=== PATIENT | female | born 2000 | race Caucasian/White ===

== ENCOUNTER 2023-11-13 10:41 | Outpatient (CLI) | payer OTHER, SELFPAY ==
[2023-11-13 11:31] LABS: Basophils # 0.1 K/mm3 (0-0.2); Basophils % 0.7 % (0.1-2.0); Eosinophils # 0.1 K/mm3 (0.0-0.4); Eosinophils % 1.2 % (0.1-12.0); Hematocrit 33.7 % (37.0-47.0); Hemoglobin 11.5 g/dL (12.2-16.2); Lymphocytes # 2.2 K/mm3 (0.7-4.5); Lymphocytes % 26.7 % (10-50); Mean Corpuscular HGB Conc 34.2 g/dL (31.8-35.4); Mean Corpuscular Hemoglobin 29.9 pg (27.0-31.2); Mean Corpuscular Volume 87.4 fl (81-99); Mean Platelet Volume 7.7 fl (7.4-10.4); Monocytes # 0.4 K/mm3 (0.1-1.0); Monocytes % 4.5 % (1.7-9.3); Neutrophils # 5.5 K/mm3 (1.8-7.8); Platelet Count 392 K/mm3 (142-424); Red Blood Count 3.85 M/mm3 (4.20-5.40); Red Cell Distribution Width 13.5 % (11.5-17.5); White Blood Count 8.1 K/mm3 (4.8-10.8)
[2023-11-13 13:29] LABS: HCG,Quantitative 124170 mIU/ml (0-5.42)
[2023-11-14 08:32] LABS: HIV Screen 4th Generation wRfx Non Reactive (Non Reactive)
[2023-11-14 09:14] LABS: Rubella Antibodies, IgG 2.15 index (Immune >0.99)
[2023-11-14 11:05] LABS: Rapid Plasma Reagin Ab Titer Non Reactive titer (NonRea<1:1)
[2023-11-14 15:02] LABS: Progesterone 30.8 ng/mL (.)
[2023-11-21 09:26] LABS: Hepatitis B Surface Antigen Negative; Hepatitis C Antibody Non Reactive
== END 2023-11-13 23:59 ==
PROVIDERS: PCP Pediatrics; Visit Provider Obstetrics & Gynecology
DX: N92.6 Irregular menstruation, unspecified (principal); Z34.91 Encounter for supervision of normal pregnancy, unspecified, first trimester; Z3A.09 9 weeks gestation of pregnancy
CPT/HCPCS: 36415; 84144; 84702; 85025; 86593; 86703; 86762; 86850; 87086; 87340; 87380; G0432

== ENCOUNTER 2024-01-28 13:12 | Outpatient (CLI) | payer BC, SELFPAY ==
--- NOTE | 2024-01-28 13:13 | US_ITS ---
PROCEDURE: US OB /MATERNAL DETAIL CLINICAL INDICATION: 20 wk+ Anatomy Scan-US OB Complete COMPARISON: No exams were available for comparison FINDINGS: Transabdominal sonographic images of the pelvis were obtained. From her established due date she is 20 weeks 2 days. Single viable intrauterine gestation. Breech position then switched to cephalic.. Placenta: Posteriorplacenta grade 1. Transvaginal ultrasound reveals that the placenta is marginal, currently 0.8 cm from the internal cervical os. There is an average amount of fluid. The cervix appears satisfactory. Closed and measuring 3.0 cm in length. Complete survey performed and was unremarkable on the submitted images as in PACS. No discrete anomalies identified on survey imaging by technologist. Active fetus. Three-vessel cord with satisfactory umbilical cord insertion. 4- chamber heart noted. Situs, aortic arch, LVOT, RVOT, three-vessel view appear normal. Survey of brain & ventricles Unremarkable. Cerebellum, thalamus, choroid plexus, cisterna magna appear normal. Face and neck survey unremarkable. Profile, nasion, lips and nose appeared normal. Diaphragm and chest views unremarkable. Abdomen: Both kidneys noted and unremarkable. Stomach and bladder noted and satisfactory. Spine: Survey of the spine satisfactory with no anomalies identified nor imaged. Cervical, thoracic, lower spine appear normal. Both arms and legs noted. Amniotic Fluid: Adequate. Measurements: Average ultrasound age 19weeks 4days. Estimated due date by ultrasound age 0806/19/2024. Estimated weight 314g BPD = 19 weeks 0 days HC = 19weeks 2days AC = 20weeks 3days FL = 19weeks 3days Growth Percentile= 21 Heart Rate = 160bpm Cerebellum = 19weeks 6days Humerus = 20weeks 1day HC/AC is 1.1 FL/BPD is 0.71 FL/AC is 0.2 IMPRESSION: 1. Viable fetus initially in the breech presentation then switched to cephalic presentation. 2. The placenta is posterior grade 1 and marginal previa. It is 0.8 cm from the internal cervical os. Suggest repeat ultrasound at 28 weeks to see resolution of the marginal placenta. 3. The fluid is within normal limits. 4. Anatomical scan appears normal. 5. biometry is consistent with dates. Dictated by: Kehinde Winter MD 01/28/2024 16:22 Kehinde Winter MD in [place] 01/28/2024 16:22
== END 2024-01-28 23:59 ==
LOC: RAD 13:13
PROVIDERS: PCP Pediatrics; Visit Provider Obstetrics & Gynecology
DX: O99.322 Drug use complicating pregnancy, second trimester (principal); O26.892 Other specified pregnancy related conditions, second trimester; Z3A.20 20 weeks gestation of pregnancy; F12.90 Cannabis use, unspecified, uncomplicated; Z98.891 History of uterine scar from previous surgery; Z14.1 Cystic fibrosis carrier; Z36.3 Encounter for antenatal screening for malformations
CPT/HCPCS: 76811

== ENCOUNTER 2024-02-14 18:35 | Emergency (ER) | payer BC, SELFPAY ==
[2024-02-14 18:37] VITALS: BP 121/80; PULSE 105; RESP 19; TEMP 36.7; O2SAT 98; BMI 22.7
--- NOTE | 2024-02-14 18:43 | ECG_ITS ---
APPROVED REPORT Exam: Resting ECG HR:89 bpm ECG Measurements Heart Rate 89 AXES AL 126 P 74 QRSd 92 QRS 91 QT 354 T 74 QTc 401 Conclusion SINUS RHYTHM WITH MARKED SINUS ARRHYTHMIA BORDERLINE RIGHT AXIS DEVIATION [QRS AXIS > 90] No STEMI -Caroline Whyte MD Electronically signed by : CAROLINE WHYTE, 02/14/2024 23:38:24
--- NOTE | 2024-02-14 18:48 | PC.NURSE ---
FHT'S 145-150 PER DOPPLER
[2024-02-14 18:54] VITALS: BP 111/72; PULSE 120; RESP 18; TEMP 36.8; O2SAT 96
--- NOTE | 2024-02-14 18:58 | ED_ITS ---
Discharge Plan Disposition Patient Disposition: Home, Self-Care Condition: Good Prescriptions Prescriptions: No Action Classic 28 mg iron- 800 mcg tablet See Rx Instructions .ROUTE .COMPLEX Rx Instructions: Daily promethazine 12.5 mg tablet 12.5 mg PO Q6H PRN (Reason: nausea and vomiting) Qty: 20 1RF Referrals Follow up/Referrals: Nathaniel Glass [Primary Care Provider] - See instructions Nestor Caldwell MD [Staff Physician] - See instructions Activity Restrictions/Add. Instructions Additional Instructions/Restrictions: Please follow-up in Dr. Caldwell's office at 10 AM tomorrow. Please follow-up with [facility]ERK, PCP or return to ER for any worsening change in your symptoms Clinical Impressions Clinical Impression: Dyspnea Discharge ED Provider: Caroline Whyte HPI <SHEYRL Velasco - Last Filed: 02/14/24 21:01> General Chief Complaint: Shortness of Breath/Dyspnea Stated Complaint: SOA- 22 wks Time Seen by Provider: 02/14/24 18:38 Mode of Arrival: Ambulatory Source of Information: Patient Limitations: No Limitations Description of Symptoms (Recalled from ER Triage Doc. by RN): pt presents to ED with c/o shortness of air this am. cough, cant take a deep breath, no pain, no edema. History of Present Illness HPI narrative: Patient presents for evaluation of acute onset of dyspnea that began approximately 1 to 2 AM in the morning. There was no provoking event. Patient denies exposure or feeling any type of illness including fever chills hemoptysis hematochezia melena nausea vomiting diarrhea. Patient states that the shortness of breath is worse when lying flat but still present when sitting up or upright. This is her second and thus far has been uncomplicated. Related Data Home Medications Medication Instructions Recorded Confirmed vits [id number] fum See Rx Instructions .Route .COMPLEX 11/13/23 01/28/24 28 mg iron-folic acid 800 mcg tablet (Classic ) Previous Rx's Medication Instructions Recorded promethazine 12.5 mg tablet 12.5 mg PO Q6H PRN nausea and 12/24/23 vomiting #20 tabs Allergies Allergy/AdvReac Type Severity Reaction Status Date / Time bee pollen Allergy Severe Anaphylaxis Verified 01/28/24 14:17 PFSH <SHERYL Velasco - Last Filed: 02/14/24 21:01> [facility] Disclaimer: The information contained in this section may have been updated after the patient was seen, as this information can be updated by other users. 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; negative for Fragile X, SMA and DMD Marijuana use during delivery delivered Surgical History History of Family History Other Diabetes Heart attack Hyperlipidemia Stroke Thyroid disorder Social History Smoking Status: Never smoker alcohol intake: never substance use type: denies use current occupational status: employed Travel in the last 8 weeks: None <SHERYL Velasco - Last Filed: 02/14/24 21:01> ROS Obtained: Yes Systems reviewed as appropriate & no additional complaints except as documented Physical Exam <SHERYL Velasco - Last Filed: 02/14/24 21:01> General General appearance: alert and in no apparent distress Head Head exam: atraumatic and normal inspection Eye Eye exam: Present normal appearance and EOMI ENT ENT exam: Present normal exam and normal oropharynx Neck Neck exam: Present normal inspection and full ROM Chest Chest inspection: Present normal inspection and symmetric chest wall rise Respiratory Respiratory exam: Present normal lung sounds bilaterally; Absent respiratory distress, wheezes, stridor or accessory muscle use Cardiovascular Cardiovascular exam: Present normal rhythm, tachycardia (At 105), normal heart sounds, +S1 and +S2 Abdominal Exam Abdominal exam: Present soft and normal bowel sounds; Absent tenderness Comment: heart tones dopplered at 145-150 Extremities Exam Extremities exam: Present normal inspection and full ROM Back Exam Back exam: Present normal inspection and full ROM Neurological Exam Neurological exam: Present alert and oriented X3 Psychiatric Psychiatric exam: Present normal affect and normal mood Skin Skin exam: Present warm, dry and normal color HEART Score <SHERYL Velasco Last Filed: 02/14/24 21:01> HEART Score HEART Score assessment performed?: Yes History (anamnesis): Slightly suspicious ECG: Normal Age: <45 years Risk factors: 1-2 risk factors Troponin: </= normal limit HEART Score: 1 <Caroline Whyte MD - Last Filed: 02/14/24 23:04> HEART Score HEART Score: 1 Critical Care <SHERYL Velasco - Last Filed: 02/14/24 21:01> Critical Care Time Critical Care Time: No Medical Decision Making <SHERYL Velasco - Last Filed: 02/14/24 21:01> Medical Records Medical records reviewed: Yes I reviewed the patient's medical records. Ralph Inquiry Pt receiving controlled substance: No Vital Signs Vital Signs: 02/14/24 18:37 02/14/24 18:54 02/14/24 21:11 Temperature 98.0 F 98.2 F 98.0 F Temperature Source Oral Oral Oral Pulse Rate 120 H 87 Pulse Rate [Left Radial] 105 H Respiratory Rate 19 18 20 Blood Pressure 111/72 100/60 L Blood Pressure [Right Arm] 121/80 Blood Pressure Mean [Right Arm] 93 Blood Pressure Source Automatic Cuff Blood Pressure Position Supine 02 Sat by Pulse Oximetry 98 96 Oxygen Delivery Method Room Air Room Air Room Air Lab Data Lab results reviewed: Yes I reviewed the patient's lab results. Labs: Lab Results 02/14/24 18:51: WBC 9.6, RBC 4.30, Hgb 13.0, Hct 40.5, MCV 94.1, MCH 30.1, MCHC 32.0, RDW 13.8, Plt Count 371, MPV 8.4, Neut % (Auto) 63.4, Lymph % (Auto) 23.4, Kendall % (Auto) 4.5, Eos % (Auto) 7.6, Baso % (Auto) 1.1, Neut # (Auto) 6.1, Lymph # (Auto) 2.3, Kendall # (Auto) 0.4, Eos # (Auto) 0.7 H, Baso # (Auto) 0.1, D-Dimer 0.46, Sodium 139, Potassium 3.3 L, Chloride 107, Carbon Dioxide 27, Anion Gap 8.3, BUN 4 L, Creatinine 0.40 L, Estimated Creat Clear 163, Estimated GFR 196, Est GFR ( Amer) 237, Glucose 81, Calcium 9.0, Troponin I < 0.01, NT-Pro-B Natriuret Pep < 20.0 02/14/24 19:09: SARS-CoV-2 (PCR) Not detected, Influenza A Untype (PCR) Not detected, Influenza Type B (PCR) Not detected 02/14/24 18:51 02/14/24 18:51 Response Orders (Tests/Meds): ORDERS Category Date Time Status Chest XR -- portable [XR chest portable] Stat Exams 02/14/24 20:01 Completed BMP [Basic Metabolic Panel] Stat Lab 02/14/24 18:51 Completed BNP [NT Pro Brain Natriuretic Pep.] Stat Lab 02/14/24 18:51 Completed CBC w/Auto Diff [Complete Blood Count Auto Diff] Stat Lab 02/14/24 18:51 Completed D-Dimer Stat Lab 02/14/24 18:51 Completed Rapid PCR Covid and Flu A/B Stat Lab 02/14/24 19:09 Completed Trop I [Troponin I] Stat Lab 02/14/24 18:51 Completed MDM Narrative Medical Decision Narrative: In summary patient is a 23-year-old female who presents to the emergency department for evaluation of dyspnea. Patient is hemodynamically stable upon arrival, afebrile. Physical exam is unremarkable including breath sounds heard in all 4 lung sánchez without adventitious sounds, she is satting greater than 94% on room air and is not tachycardic and is without chest pain.. Differential diagnosis includes CHF versus PE versus viral or bacterial infection versus ACS etc. Initial workup will be conducted with hematologic labs initially and based on those radiographic investigations via shared decision making with the patient. Initial workup reviewed by me shows that her hematologic labs are unremarkable, EKG is normal, plain film chest x-ray via informal interpretation shows no acute disease, and her COVID and flu were negative. Upon repeat evaluation patient still reports subjective dyspnea even while upright however her vital signs remain normal including O2 sat on room air of 99%. Given this via shared decision making I discussed with the patient the option of further workup or with a evaluation by cardiology in the clinic in the morning. I discussed patient management with Dr. Caldwell who agreed that he can see her at 10 AM in his office. Patient elected to follow-up with cardiology in the morning. <Caroline Whyte MD - Last Filed: 02/14/24 23:04> Vital Signs Vital Signs: 02/14/24 18:37 02/14/24 18:54 02/14/24 21:11 Temperature 98.0 F 98.2 F 98.0 F Temperature Source Oral Oral Oral Pulse Rate 120 H 87 Pulse Rate [Left Radial] 105 H Respiratory Rate 19 18 20 Blood Pressure 111/72 100/60 L Blood Pressure [Right Arm] 121/80 Blood Pressure Mean [Right Arm] 93 Blood Pressure Source Automatic Cuff Blood Pressure Position Supine 02 Sat by Pulse Oximetry 98 96 Oxygen Delivery Method Room Air Room Air Room Air Lab Data Labs: Lab Results 02/14/24 18:51: WBC 9.6, RBC 4.30, Hgb 13.0, Hct 40.5, MCV 94.1, MCH 30.1, MCHC 32.0, RDW 13.8, Plt Count 371, MPV 8.4, Neut % (Auto) 63.4, Lymph % (Auto) 23.4, Kendall % (Auto) 4.5, Eos % (Auto) 7.6, Baso % (Auto) 1.1, Neut # (Auto) 6.1, Lymph # (Auto) 2.3, Kendall # (Auto) 0.4, Eos # (Auto) 0.7 H, Baso # (Auto) 0.1, D-Dimer 0.46, Sodium 139, Potassium 3.3 L, Chloride 107, Carbon Dioxide 27, Anion Gap 8.3, BUN 4 L, Creatinine 0.40 L, Estimated Creat Clear 163, Estimated GFR 196, Est GFR ( Amer) 237, Glucose 81, Calcium 9.0, Troponin I < 0.01, NT-Pro-B Natriuret Pep < 20.0 02/14/24 19:09: SARS-CoV-2 (PCR) Not detected, Influenza A Untype (PCR) Not detected, Influenza Type B (PCR) Not detected Response Orders (Tests/Meds): ORDERS Category Date Time Status Chest XR -- portable [XR chest portable] Stat Exams 02/14/24 20:01 Completed BMP [Basic Metabolic Panel] Stat Lab 02/14/24 18:51 Completed BNP [NT Pro Brain Natriuretic Pep.] Stat Lab 02/14/24 18:51 Completed CBC w/Auto Diff [Complete Blood Count Auto Diff] Stat Lab 02/14/24 18:51 Completed D-Dimer Stat Lab 02/14/24 18:51 Completed Rapid PCR Covid and Flu A/B Stat Lab 02/14/24 19:09 Completed Trop I [Troponin I] Stat Lab 02/14/24 18:51 Completed MDM Narrative Medical Decision Narrative: In summary patient is a 23-year-old female who presents to the emergency department for evaluation of dyspnea. Patient is hemodynamically stable upon arrival, afebrile. Physical exam is unremarkable including breath sounds heard in all 4 lung sánchez without adventitious sounds, she is satting greater than 94% on room air and is not tachycardic and is without chest pain.. Differential diagnosis includes CHF versus PE versus viral or bacterial infection versus ACS etc. Initial workup will be conducted with hematologic labs initially and based on those radiographic investigations via shared decision making with the patient. Initial workup reviewed by me shows that her hematologic labs are unremarkable, EKG is normal, plain film chest x-ray via informal interpretation shows no acute disease, and her COVID and flu were negative. Upon repeat evaluation patient still reports subjective dyspnea even while upright however her vital signs remain normal including O2 sat on room air of 99%. Given this via shared decision making I discussed with the patient the option of further workup or with a evaluation by cardiology in the clinic in the morning. I discussed patient management with Dr. Caldwell who agreed that he can see her at 10 AM in his office. Patient elected to follow-up with cardiology in the morning. Attestation: I was consulted by the JOSE, and we discussed the complexity of the problems being addressed. I approved the treatment and management plan for this patient's care in the emergency department, thus performing a substantive portion of the medical decision making. Signed, Caroline Whyte MD
[2024-02-14 19:18] LABS: Coronavirus 19, PCR Not Detected (NotDetected); Influenza A, PCR Not Detected (NotDetected); Influenza B, PCR Not Detected (NotDetected)
[2024-02-14 19:20] LABS: Anion Gap 8.3 mEq/L (5-15); Blood Urea Nitrogen 4 mg/dl (7-17); Carbon Dioxide 27 mmol/L (22.0-30.0); Chloride 107 mmol/L (98-107); Creatinine Clearance Estimated 163 mL/min (50-200); Estimated Glomerular Filt Rate 196 ml/min (>60); GFR (African American) 237 ML/MIN (>60); Glucose 81 mg/dl (74-100); Potassium 3.3 mmoL/L (3.5-5.1); Sodium 139 mmol/L (136-145)
[2024-02-14 19:26] LABS: D-Dimer 0.46 ug/mL (0.0-0.5)
[2024-02-14 19:32] LABS: NT Pro Brain Natriuretic Pep. < 20.0 pg/mL (0-125)
[2024-02-14 19:47] LABS: Troponin I < 0.01 ng/ml (0.00-0.034)
[2024-02-14 19:49] LABS: Basophils # 0.1 K/mm3 (0-0.2); Basophils % 1.1 % (0.1-2.0); Eosinophils # 0.7 K/mm3 (0.0-0.4); Eosinophils % 7.6 % (0.1-12.0); Hematocrit 40.5 % (37.0-47.0); Lymphocytes # 2.3 K/mm3 (0.7-4.5); Lymphocytes % 23.4 % (10-50); Mean Corpuscular Hemoglobin 30.1 pg (27.0-31.2); Mean Corpuscular Volume 94.1 fl (81-99); Mean Platelet Volume 8.4 fl (7.4-10.4); Monocytes # 0.4 K/mm3 (0.1-1.0); Monocytes % 4.5 % (1.7-9.3); Neutrophils # 6.1 K/mm3 (1.8-7.8); Neutrophils % 63.4 % (37.0-80.0); Platelet Count 371 K/mm3 (142-424); Red Cell Distribution Width 13.8 % (11.5-17.5); White Blood Count 9.6 K/mm3 (4.8-10.8)
--- NOTE | 2024-02-14 20:01 | XR_ITS ---
PROCEDURE INFORMATION: Exam: XR Chest Exam date and time: 02/14/2024 8:06 PM Age: 23 years old Clinical indication: Dyspnea TECHNIQUE: Imaging protocol: Radiologic exam of the chest. Views: 1 view. COMPARISON: No relevant prior studies available. FINDINGS: Lungs: Unremarkable. No consolidation. Pleural spaces: Unremarkable. No pleural effusion. No pneumothorax. Heart/Mediastinum: Unremarkable. No cardiomegaly. Bones/joints: Osseous alignment is normal. No acute fracture. Other findings: Rounded metallic ring projecting in the midline between the clavicles is presumed to be external to the patient, such as a piece of jewelry. IMPRESSION: No acute disease
--- NOTE | 2024-02-14 20:20 | PC.NURSE ---
Pt ambulated to the restroom fine on her own. Pt states she's feeling better.
[2024-02-14 21:11] VITALS: BP 100/60; PULSE 87; RESP 20; TEMP 36.7; O2SAT 97
== END 2024-02-14 21:12 | disposition home or self-care (01) ==
PROVIDERS: Physician Assistant; Emergency Provider Emergency Medicine; PCP Pediatrics
DX: O26.892 Other specified pregnancy related conditions, second trimester (principal); R06.02 Shortness of breath; E87.6 Hypokalemia; I49.9 Cardiac arrhythmia, unspecified; Z3A.22 22 weeks gestation of pregnancy
CPT/HCPCS: 71045; 80048; 83880; 84484; 85025; 85378; 87636; 93005; 99284

== ENCOUNTER 2024-02-25 08:45 | Emergency (ER) | payer BC, SELFPAY ==
--- NOTE | 2024-02-25 | ECG_ITS ---
APPROVED REPORT Exam: Resting ECG HR:119 bpm ECG Measurements Heart Rate 119 AXES WI 112 P 79 QRSd 88 QRS 99 QT 292 T 74 QTc 363 Conclusion SINUS TACHYCARDIA WITH SHORT WI INTERVAL BORDERLINE RIGHT AXIS DEVIATION [QRS AXIS > 90] ABNORMAL RHYTHM ECG UNCONFIRMED REPORT Electronically signed by : Neel Colbert, 02/25/2024 15:24:07
[2024-02-25 08:47] VITALS: BP 133/84; PULSE 113; RESP 19; TEMP 37.1; O2SAT 97; BMI 21.6
[2024-02-25 09:00] VITALS: BP 125/83; PULSE 121; O2SAT 96
--- NOTE | 2024-02-25 09:14 | PC.NURSE ---
DR KING AT BS FOR PT EVAL
--- NOTE | 2024-02-25 09:23 | XR_ITS ---
FINAL REPORT CLINICAL HISTORY: dyspnea PATIENT IS 24 WEEKS FINDINGS: A single view of the chest was obtained. The heart is normal in size. The mediastinum is unremarkable. The lungs are clear. There is no pleural effusion. There is no pneumothorax. There is no acute osseous abnormality. IMPRESSION: No acute cardiopulmonary process. Reviewed, Interpreted and Dictated by Devan Tafoya MD Transcribed by Neelam Grace Authenticated and [facility]
[2024-02-25 09:30] VITALS: BP 120/82; PULSE 117; O2SAT 95
--- NOTE | 2024-02-25 09:33 | ED_ITS ---
Discharge Plan Disposition Patient Disposition: Home, Self-Care Prescriptions Prescriptions: New albuterol sulfate 90 mcg/actuation HFA aerosol inhaler 4 inh inhalation Q4H PRN (Reason: shortness of breath or wheezing) Qty: 8.5 0RF Rx Instructions: 4 puffs every 4 hours for 48 hours then as needed for shortness of breath or wheezing following prednisone 50 mg tablet 50 mg PO DAILY 5 Days Qty: 5 0RF Rx Instructions: Please begin 1 day after ED visit No Action Classic 28 mg iron- 800 mcg tablet See Rx Instructions .ROUTE .COMPLEX Rx Instructions: Daily promethazine 12.5 mg tablet 12.5 mg PO Q6H PRN (Reason: nausea and vomiting) Qty: 20 1RF Referrals Follow up/Referrals: Nathaniel Glass [Primary Care Provider] - See instructions Jaiden Linn MD [Physician] - See instructions Activity Restrictions/Add. Instructions Additional Instructions/Restrictions: Your symptoms are most consistent with reactive airway disease such as we see an asthma. I recommend that you follow-up closely with our [facility] given that this is a new diagnosis particular in the setting of . Return with any significant worsening of your symptoms. No alternative explanation or emergent medical condition was identified outside of this presumptive diagnosis. Clinical Impressions Clinical Impression: Reactive airway disease, Respiratory distress, Discharge ED Provider: Cohco Colbert General Chief Complaint: Shortness of Breath/Dyspnea Stated Complaint: back pain, SOA, Time Seen by Provider: 02/25/24 09:00 Mode of Arrival: Ambulatory Source of Information: Patient Limitations: No Limitations Description of Symptoms (Recalled from ER Triage Doc. by RN): Patient presents to ER with complaints of shortness of breath and pain in upper back with inspiration, worse when laying down and exertion. Reports swelling in left leg and some spotting a couple days ago patient is 24 weeks and reports baby is active, Patient states she was seen here for similar episodes and has echo scheduled this week. No other complaints voiced. History of Present Illness HPI narrative: Patient is a G2, P1 24 weeks gestational age who presents today with dyspnea. She was here 10 days ago for the same complaints was evaluated without emergent medical condition identified was advised to follow-up with cardiology who saw her and ordered an outpatient echo that has not yet been completed. She presents today with worsening of the same symptoms. States that her symptoms began relatively suddenly on the 12th she had difficult time laying down flat since that time. She did complain of some unilateral very mild leg swelling left lower extremity. No history of DVT or PE or hypercoagulable state. No fevers. She has been coughing somewhat states she has had some pain with movements and deep inspiration predominantly in the mid thoracic spine area. This has worsened over the last 24 hours. No history of asthma however she states as a kid she did frequently wheeze whenever she would have allergies and she recalls that but is never been formally diagnosed with any reactive airway disease. She does not smoke she is around secondhand smoke however. Related Data Home Medications Medication Instructions Recorded Confirmed vits no.[id number]-[id number] fum See Rx Instructions .Route .COMPLEX 11/13/23 02/15/24 28 mg iron-folic acid 800 mcg tablet (Classic ) Previous Rx's Medication Instructions Recorded promethazine 12.5 mg tablet 12.5 mg PO Q6H PRN nausea and 12/24/23 vomiting #20 tabs albuterol sulfate 90 mcg/actuation 4 inh inhalation Q4H PRN shortness 02/25/24 aerosol inhaler of breath or wheezing #8.5 grams prednisone 50 mg tablet 50 mg PO DAILY 5 days #5 tabs 02/25/24 Allergies Allergy/AdvReac Type Severity Reaction Status Date / Time bee pollen Allergy Severe Anaphylaxis Verified 02/15/24 10:03 [facility] Disclaimer: The information contained in this section may have been updated after the patient was seen, as this information can be updated by other users. 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; negative for Fragile X, SMA and DMD Marijuana use during delivery delivered Surgical History History of Family History Other Diabetes Heart attack Hyperlipidemia Stroke Thyroid disorder Social History Smoking Status: Never smoker alcohol intake: never substance use type: denies use current occupational status: employed Travel in the last 8 weeks: None ROS Obtained: Yes All systems reviewed & no additional complaints except as documented Physical Exam General General appearance: in distress (Respiratory) Respiratory Respiratory exam: Present other (Patient in mild respiratory distress speaking in fragmented sentences tachypneic she has diffuse expiratory wheezing and prolonged expiratory phase) Cardiovascular Cardiovascular exam: Present tachycardia (Heart rate 120) Neurological Exam Neurological exam: Present alert and oriented X3 HEART Score HEART Score HEART Score assessment performed?: Yes History (anamnesis): Slightly suspicious ECG: Normal Age: <45 years Risk factors: No known risk factors Troponin: </= normal limit HEART Score: 0 Procedures Miscellaneous Procedure Procedure Performed: Limited OB ultrasound Indication: Dyspnea Identified structures: [-Uterus -Left adnexa -Right adnexa -Pouch of Crow] Findings: Uterus: Definitive living IUP consistent with dates heart rate within normal limits Right adnexa: No free fluid Left adnexa: No free fluid Cul de sac: No free fluid Impression: Single living IUP consistent with dates Images were saved to permanent archive The study was technically adequate CPT Transabdominal: 42909-56 This study was performed by nm, and I personally interpreted all images/videos. Based on my clinical judgement, these images were adequate and did not necessitate further imaging. Limited cardiac ultrasound Indication: Dyspnea Identified structures: The heart was visualized in the parasternal long axis, parastenal short axis, apical four chamber and subxyphiod views. The IVC was visualized in the short axis and long axis at its entry into the right atrium. Findings: Normal LVEF no significant right heart strain no pericardial effusion IVC is decompressed with normal respirophasic variation Impression: Normal limited cardiac ultrasound Images were saved to permanent archive The study was technically adequate CPT: 33193-79 This study was performed by nm, and I personally interpreted all images/videos. Based on my clinical judgement, these images were adequate and did not necessitate further imaging. Limited lung ultrasound A focused ultrasound exam of the pleural spaces was performed to evaluate for pneumothorax, pulmonary edema, pleural effusion and/or consolidation. The ultrasound was performed with the following indications, as noted in the H&P: Dyspnea Identified structures: Right and left thoracic cavities were examined. Findings: Bilateral lung sliding was present no B-lines pleural effusion and consolidation noted Impression: Normal bilateral lung ultrasound Images were saved to permanent archive The study was technically adequate CPT 67413-82 This study was performed by nm, and I personally interpreted all images/videos. Based on my clinical judgement, these images were adequate and did not necessitate further imaging. Critical Care Critical Care Time Critical Care Time: Yes Attestation: On 02/25/24, the high probability of a clinically significant, sudden or life threatening deterioration of the following system(s) required my full and direct attention, intervention and personal management. The time I documented below is in addition to time spent performing reported procedures but includes the following listed in this critical care notation. Total Time Total Critical Care Time: 35 Medical Decision Making Ralph Inquiry Pt receiving controlled substance: No Vital Signs Vital Signs: 02/25/24 08:47 02/25/24 09:00 02/25/24 09:30 Temperature 98.7 F Temperature Source Oral Pulse Rate 121 H 117 H Pulse Rate [Right] 113 H Respiratory Rate 19 Blood Pressure 125/83 120/82 Blood Pressure [Right Arm] 133/84 Blood Pressure Mean [Right Arm] 100 Blood Pressure Source [Right Arm] Automatic Cuff 02 Sat by Pulse Oximetry 97 96 95 Oxygen Delivery Method Room Air Room Air Room Air Lab Data Lab results reviewed: Yes I reviewed the patient's lab results. Labs: Lab Results 02/25/24 09:09: WBC 10.9 H, RBC 4.17 L, Hgb 13.1, Hct 39.8, MCV 95.4, MCH 31.4 H , MCHC 33.0, RDW 14.2, Plt Count 342, MPV 8.6, Neut % (Auto) 71.3, Lymph % (Auto) 18.0, Fountain % (Auto) 3.8, Eos % (Auto) 6.0, Baso % (Auto) 0.9, Neut # (Auto) 7.7, Lymph # (Auto) 2.0, Fountain # (Auto) 0.4, Eos # (Auto) 0.7 H, Baso # (Auto) 0.1, D-Dimer 0.48, Sodium 139, Potassium 4.1, Chloride 108 H, Carbon Dioxide 27, Anion Gap 8.1, BUN 6 L, Creatinine 0.30 L, Estimated Creat Clear 207, Estimated GFR 273, Est GFR ( Amer) 331, Glucose 76, Calcium 9.5, Total Bilirubin 0.7, AST 32, ALT 21, Alkaline Phosphatase 89, Troponin I < 0.01, Total Protein 6.9, Albumin 3.7, Globulin 3.2, Albumin/Globulin Ratio 1.2 02/25/24 09:31: VBG pH 7.31, VBG pCO2 50.1, VBG pO2 38.8, VBG HCO3 24.4, VBG Total CO2 26.0, VBG O2 Saturation 66.8, VBG Base Excess -1.9, VBG Lactic Acid 1.6 02/25/24 09:09 02/25/24 09:09 Response Orders (Tests/Meds): ED MEDICATIONS Discontinued Medications Generic Name Dose Route Start Last Admin Trade Name Freq PRN Reason Stop Dose Admin Acetaminophen 1,000 mg 02/25/24 09:23 02/25/24 09:36 Acetaminophen 1,000mg/100ml Vial IV 02/25/24 09:24 1,000 mg ONCE ONE Administration Albuterol/Ipratropium 3 ml 02/25/24 09:23 02/25/24 09:37 Ipratropium/Albuterol 3 Ml Neb IH 02/25/24 09:24 3 ml ONCE ONE Administration Magnesium Sulfate 2 gm in 50 mls @ 50 mls/hr 02/25/24 09:23 02/25/24 09:36 Magnesium Sulfate 2gm/50ml Premix IV 02/25/24 10:22 50 mls/hr ONCE ONE Administration Lactated Ringer's 1,000 mls @ 999 mls/hr 02/25/24 09:30 02/25/24 09:36 Lactated Ringer's 1000 Ml Bag IV 02/25/24 10:30 999 mls/hr .Q1H1M NANCY Administration Methylprednisolone Sodium Succinate 125 mg 02/25/24 09:23 02/25/24 09:37 Methylprednisolone Sod Succ 125mg Vial IV 02/25/24 09:24 125 mg ONCE ONE Administration ORDERS Category Date Time Status CXR --portable [XR chest portable] Stat Exams 02/25/24 09:23 Taken POCUS Point of Care (ER Only) Stat Exams 02/25/24 09:02 Completed BNP [NT Pro Brain Natriuretic Pep.] Stat Lab 02/25/24 09:09 Received CBC w/Auto Diff [Complete Blood Count Auto Diff] Stat Lab 02/25/24 09:09 Completed CMP [Comprehensive Metabolic Panel] Stat Lab 02/25/24 09:09 Completed D-Dimer Stat Lab 02/25/24 09:09 Completed Full Resp Panel w/COVID ([facility]) Routine Lab 02/25/24 09:31 Received Trop I [Troponin I] Stat Lab 02/25/24 09:09 Completed Troponin I Q3H Lab 02/25/24 12:30 Ordered Troponin I Q3H Lab 02/25/24 15:30 Ordered Venous Blood Gas Stat RT 02/25/24 09:31 Completed ECG Data Tracing #1: Attestation: I reviewed this ECG and interpreted as documented below: ECG Narrative: Ventricular rate of 119 sinus tachycardia no acute ischemic changes noted there is a borderline right axis deviation no significant conduction abnormalities noted MDM Narrative Medical Decision Narrative: Patient is a 23-year-old presenting and mild to moderate respiratory distress. Her history and physical are most consistent with what appears to be reactive airways such as asthma. She does not carry a diagnosis of this however she is behaving on physical exam and consistent manner. She does have a history of wheezing when she had significant allergies. Limited bedside ultrasound of the heart and lungs did not demonstrate any clear evidence of decompensated heart failure or significant right heart strain or alternative diagnosis at the moment. Pulmonary embolism is certainly on the differential however this typically does not present with tight airways with wheezing etc. Will treat her with nebs steroids and magnesium and administer IV fluids. Her IVC is decompressed with normal respirophasic variation she should be responsive to IV fluids. I will check a D-dimer for further restratification regarding a pulmonary embolism. She did have some subjective left lower extremity asymmetric swelling which I do not appreciate on physical exam. Additionally she has some pain in her mid thoracic area with deep inspiration. I will discuss with her further risks and benefits of a possible CT scan after therapeutic interventions and reassessment after her lab test return. EKG is nonspecific and nonischemic. Will reassess after her initial workup is complete. Reassessment 10:43 AM patient feeling significantly better chest x-ray was performed which I first interpreted shows no acute cardiopulmonary emergency. Labs unremarkable. On reassessment patient no longer in any distress vital signs of significantly improved she is not tachypneic serial respiratory exams are normal there is no wheezing no tachypnea she is now able to speak in full sentences walk without any dyspnea and lay down flat. She is still mildly tachycardic but recently got albuterol. Heart rate was around 110 on my final evaluation. She will follow-up closely with pulmonology working diagnosis is reactive airway disease most likely undiagnosed asthma. She will return emerged part with any significant worsening of her symptoms. She does have an echo scheduled tomorrow which I told her she can keep that appointment if she would like. However limited bedside ultrasound today showed normal LVEF functioning. He was discharged in a significantly improved and stable condition.
[2024-02-25 09:35] LABS: Basophils # 0.1 K/mm3 (0-0.2); Basophils % 0.9 % (0.1-2.0); Eosinophils # 0.7 K/mm3 (0.0-0.4); Hematocrit 39.8 % (37.0-47.0); Hemoglobin 13.1 g/dL (12.2-16.2); Mean Corpuscular Hemoglobin 31.4 pg (27.0-31.2); Mean Corpuscular Volume 95.4 fl (81-99); Mean Platelet Volume 8.6 fl (7.4-10.4); Monocytes # 0.4 K/mm3 (0.1-1.0); Monocytes % 3.8 % (1.7-9.3); Neutrophils # 7.7 K/mm3 (1.8-7.8); Neutrophils % 71.3 % (37.0-80.0); Platelet Count 342 K/mm3 (142-424); Red Blood Count 4.17 M/mm3 (4.20-5.40); Red Cell Distribution Width 14.2 % (11.5-17.5); White Blood Count 10.9 K/mm3 (4.8-10.8)
[2024-02-25 09:36] LABS: Chloride 108 mmol/L (98-107)
[2024-02-25 09:36] LABS: Lactate Venous 1.6 mmol/L (0.4-2.0); VBG Base Excess -1.9 mmol/L (-2.4-2.3); VBG HCO3 24.4 mmol/L (23-30); VBG Oxygen Saturation 66.8 % (50-70); VBG PH 7.31 mmol/L (7.31-7.41); VBG PO2 38.8 mmol/L (28-40)
[2024-02-25] MEDS: LACTATED RINGERS 1000ML 1,000 ML 999 ML IV (09:36)
[2024-02-25] MEDS: ACETAMINOPHEN 1,000MG/100ML VIAL 1000 MG IV (09:36)
[2024-02-25] MEDS: MAGNESIUM SULFATE IN WATER 2 GM/50 ML PIGGYBACK IV (09:36)
[2024-02-25 09:37] LABS: Potassium 4.1 mmoL/L (3.5-5.1); Sodium 139 mmol/L (136-145)
[2024-02-25] MEDS: METHYLPREDNISOLONE SOD SUCC 125MG VIAL 125 MG IV (09:37)
[2024-02-25] MEDS: IPRATROPIUM/ALBUTEROL 3 ML NEB IH (09:37)
[2024-02-25 09:39] LABS: VBG PCO2 50.1 mmol/L (35-51)
[2024-02-25 09:39] LABS: Alanine Aminotransferase 21 U/L (12-78); Aspartate Amino Transferase 32 U/L (14-36); Blood Urea Nitrogen 6 mg/dl (7-17); Creatinine Clearance Estimated 207 mL/min (50-200); Estimated Glomerular Filt Rate 273 ml/min (>60); GFR (African American) 331 ML/MIN (>60)
[2024-02-25 09:40] LABS: Albumin Level 3.7 g/dl (3.5-5.0); Albumin/Globulin Ratio 1.2 (1.1-1.8); Alkaline Phosphatase 89 U/L (38-126); Anion Gap 8.1 mEq/L (5-15); Bilirubin,Total 0.7 mg/dl (0.2-1.3); Calcium 9.5 mg/dl (8.4-10.2); Carbon Dioxide 27 mmol/L (22.0-30.0); Globulin 3.2 g/dL (1.3-3.2); Glucose 76 mg/dl (74-100); Total Protein,Serum 6.9 g/dl (6.3-8.2)
[2024-02-25 09:42] LABS: Adenovirus,PCR Not Detected (NotDetected); Coronavirus 19, PCR Not Detected (NotDetected); Coronavirus 229E Not Detected (NotDetected); Coronavirus NL63 Not Detected (NotDetected); Coronavirus OC43 Not Detected (NotDetected); Coronovirus HKU1,PCR Not Detected (NotDetected); Human Metapneumovirus Not Detected (NotDetected); Influenza A, PCR Not Detected (NotDetected); Influenza AH1, 2009 Not Detected (NotDetected); Influenza AH1, PCR Not Detected (NotDetected); Influenza AH3,PCR Not Detected (NotDetected); Influenza B, PCR Not Detected (NotDetected); Parainfluenza 1, PCR Not Detected (NotDetected); Parainfluenza 2, PCR Not Detected (NotDetected); Parainfluenza 3, PCR Not Detected (NotDetected); Parainfluenza 4, PCR Not Detected (NotDetected); Respiratory Syncytial Virus Not Detected (NotDetected); Rhinovirus/Enterovirus Not Detected (NotDetected)
--- NOTE | 2024-02-25 09:43 | PC.NURSE ---
RAD AT FOR CXR
[2024-02-25 09:53] LABS: D-Dimer 0.48 ug/mL (0.0-0.5)
[2024-02-25 09:54] LABS: Troponin I < 0.01 ng/ml (0.00-0.034)
[2024-02-25 10:56] VITALS: BP 117/77; PULSE 111; RESP 17; TEMP 36.9; O2SAT 98
== END 2024-02-25 10:45 | disposition home or self-care (01) ==
PROVIDERS: Emergency Provider Student in an Organized Health Care Education/Training Program; PCP Pediatrics
DX: O26.892 Other specified pregnancy related conditions, second trimester (principal); R06.03 Acute respiratory distress; R00.0 Tachycardia, unspecified; J45.909 Unspecified asthma, uncomplicated; Z3A.24 24 weeks gestation of pregnancy
CPT/HCPCS: 71045; 80053; 82803; 83880; 84484; 85025; 85378; 87632; 87635; 93005; 96365; 96375; 99285; J0131; J3475

== ENCOUNTER 2024-02-26 09:55 | Outpatient (CLI) | payer BC, SELFPAY ==
--- NOTE | 2024-02-26 09:56 | CA_ITS ---
APPROVED REPORT EXAM: Comprehensive 2D, Doppler, and color-flow Echocardiogram [employer] Operator: Kellie Ramirez RVT Ht: 4 ft 9 in Wt: 110lbs BSA: 1.40 BP: 110/62 mmHg Indications: SOA,ASTHMA,24 WKS PREG 2D Dimensions LA Volume 28.20 mL LA Volume Index 20.14 mL/m2 (M/F) 16-34 M-Mode Dimensions RVDd 2.17 cm (0.9-2.6) LA Diam 2.34 cm (1.9-4.0) LVDd 3.78 cm (3.5-5.7) LVDs 2.58 cm (3.5-5.7) IVSd 0.86 cm (0.6-1.1) PWd 0.27 cm (0.6-1.1) EF (Teich) 60.60% FS 31.70% EDV (Teich) 61.20 mL TAPSE 2.72 (<1.7) ESV (Teich) 24.10 mL LV Diastology E Decel Time 150 (160-240 msec) E/A Ratio 1.6 Aortic Valve JENNIFER Index 1.58 cm2/m2 AoV Peak Wally. 128.0 (50-130 cm/s) AO Peak GR. 6.50 mmHg AO Mean GR. 3.20 (<5 mmHg) AO VTI 20.6 (18-25 cm) JENNIFER (VTI) 2.26 (2.5-4.5 cm2) Mitral Valve MV E Max Wally. 95.0 (40-130 cm/s) MV A Velocity 60.0 (40-130 cm/s) E/A Ratio 1.57 MV PHT 44.0 ms Pulmonary Valve PV Peak Velocity 95.0 (50-150 cm/s) Tricuspid Valve TR P. Velocity 219.00 cm/s RAP Estimate 10.00 mmHg RVSP 29.20 mmHg Left Ventricle The left ventricle is normal size. The left ventricular systolic function is normal. The left ventricular ejection fraction is within the normal range. There is normal left ventricular wall thickness. There is normal LV segmental wall motion. The left ventricular diastolic function is normal. LVEF is 55%. Right Ventricle The right ventricle is normal size. The right ventricular systolic function is normal. Atria The left atrium size is normal. The right atrium size is normal. There is no Doppler evidence of interatrial shunt. Aortic Valve The aortic valve opens well. There is no aortic valvular stenosis. No aortic regurgitation is present. Mitral Valve The mitral valve is normal in structure. No evidence of mitral valve stenosis. There is no mitral valve regurgitation noted. Tricuspid Valve The tricuspid valve leaflets are thin and pliable. Mild tricuspid regurgitation. RVSP is 20-25 mmHg. Pulmonic Valve The pulmonary valve is normal in structure. Trace pulmonic regurgitation. Great Vessels The aortic root is normal in size. The ascending aorta is normal in size. IVC is normal in size and collapses >50% with inspiration. Pericardium There is no pericardial effusion. Other Information Study Quality: Adequate Conclusion Normal biventricular systolic function. Mild TR. Electronically signed by : Elizabeth Loera MD 03/02/2024 14:03:36
== END 2024-02-26 23:59 | disposition home or self-care (01) ==
LOC: RT 09:56
PROVIDERS: PCP Pediatrics; Visit Provider Nurse Practitioner Family
DX: R42 Dizziness and giddiness (principal); R06.09 Other forms of dyspnea; Z3A.13 13 weeks gestation of pregnancy; O26.891 Other specified pregnancy related conditions, first trimester
CPT/HCPCS: 93306

== ENCOUNTER 2024-03-17 10:13 | Outpatient (CLI) | payer BC, SELFPAY ==
[2024-03-17 10:37] LABS: Basophils # 0.1 K/mm3 (0-0.2); Basophils % 0.6 % (0.1-2.0); Eosinophils # 0.4 K/mm3 (0.0-0.4); Eosinophils % 4.4 % (0.1-12.0); Hematocrit 36.3 % (37.0-47.0); Hemoglobin 11.5 g/dL (12.2-16.2); Lymphocytes # 1.9 K/mm3 (0.7-4.5); Lymphocytes % 21.5 % (10-50); Mean Corpuscular HGB Conc 31.7 g/dL (31.8-35.4); Mean Corpuscular Hemoglobin 30.3 pg (27.0-31.2); Mean Corpuscular Volume 95.6 fl (81-99); Monocytes # 0.4 K/mm3 (0.1-1.0); Monocytes % 4.2 % (1.7-9.3); Neutrophils # 6.2 K/mm3 (1.8-7.8); Neutrophils % 69.4 % (37.0-80.0); Platelet Count 304 K/mm3 (142-424); Red Blood Count 3.79 M/mm3 (4.20-5.40); White Blood Count 8.9 K/mm3 (4.8-10.8)
[2024-03-17 12:01] LABS: Glucose,Fasting 79 mg/dl (74-100)
[2024-03-17 12:38] LABS: Glucose 1 Hour 126 mg/dL (74-100)
== END 2024-03-17 23:59 | disposition home or self-care (01) ==
LOC: LAB 10:14
PROVIDERS: PCP Pediatrics; Visit Provider Obstetrics & Gynecology
DX: O26.892 Other specified pregnancy related conditions, second trimester (principal); Z3A.27 27 weeks gestation of pregnancy; R73.09 Other abnormal glucose
CPT/HCPCS: 36415; 82951; 85025

== ENCOUNTER 2024-03-24 12:52 | Outpatient (CLI) | payer BC, SELFPAY ==
--- NOTE | 2024-03-24 12:52 | US_ITS ---
PROCEDURE: US OB FOLLOW UP CLINICAL INDICATION: Placental Location, EFW 21%ile COMPARISON: US US OB /MATERNAL DETAIL from 01/28/2024 FINDINGS: Transabdominal and transvaginal sonographic images of the uterus were obtained. The following parameters are obtained: From her established due date she is 29weeks 0 days Viable fetus in the cephalic presentation with a posterior placenta grade 2. The placenta is low lying and measures 1.3 cm-1.6 cm from the internal cervical os. The cervix measures 4.5 cm. heart rate: 143bpm bpm. Average ultrasound age : 27 weeks 4 days BPD: 27weeks 3days, 4 percentile HC: 27weeks 1day, < 2 percentile AC: 28weeks 2days, 20 percent FL: 27weeks 3days, 4 percentile HC/AC: 1.04 FL/BPD: 0.75 FL/AC: 0.21 Growth percentile: 7 percentile Amniotic fluid index: 12.24cm, MVP 3.79 cm. No obvious anomalies evident. profile seen, nasion, stomach, bladder, kidneys, three-vessel cord, four chamber heart appear normal. IMPRESSION: 1. Viable fetus in the cephalic presentation with a posterior placenta grade 2. 2. The placenta is still low lying and measures 1.3 cm-1.6 cm from the internal cervical os. Suggest repeat scan in 4-6 weeks. 3. The fluid is within normal limits with an amniotic fluid index of 12.24 cm, MVP 3.79 cm. 4. There has been good interval growth but the fetus is still currently symmetrically 10 days behind. 5. The limited anatomical scan appears normal. Dictated by: Kehinde Winter MD 03/24/2024 16:41 Kehinde Winter MD in [place] 03/24/2024 16:41
== END 2024-03-24 23:59 | disposition home or self-care (01) ==
LOC: RAD 12:52
PROVIDERS: PCP Obstetrics & Gynecology; Visit Provider Obstetrics & Gynecology
DX: O99.323 Drug use complicating pregnancy, third trimester (principal); O26.893 Other specified pregnancy related conditions, third trimester; Z3A.28 28 weeks gestation of pregnancy; F12.90 Cannabis use, unspecified, uncomplicated; Z98.891 History of uterine scar from previous surgery
CPT/HCPCS: 76816

== ENCOUNTER 2024-04-12 08:12 | Outpatient (CLI) | payer BC, SELFPAY ==
[2024-04-12 09:06] LABS: Alanine Aminotransferase 14 U/L (12-78); Albumin Level 3.4 g/dl (3.5-5.0); Albumin/Globulin Ratio 1.2 (1.1-1.8); Alkaline Phosphatase 164 U/L (38-126); Anion Gap 10.1 mEq/L (5-15); Aspartate Amino Transferase 26 U/L (14-36); Bilirubin,Total 0.7 mg/dl (0.2-1.3); Blood Urea Nitrogen 6 mg/dl (7-17); Calcium 9.3 mg/dl (8.4-10.2); Carbon Dioxide 27 mmol/L (22.0-30.0); Chloride 103 mmol/L (98-107); Estimated Glomerular Filt Rate 194 ml/min (>60); GFR (African American) 235 ML/MIN (>60); Globulin 2.9 g/dL (1.3-3.2); Glucose 75 mg/dl (74-100); Potassium 4.1 mmoL/L (3.5-5.1); Sodium 136 mmol/L (136-145); Total Protein,Serum 6.3 g/dl (6.3-8.2)
[2024-04-16 11:53] LABS: Bile Acids 3.1
== END 2024-04-12 23:59 | disposition home or self-care (01) ==
LOC: LAB 08:12
PROVIDERS: PCP Obstetrics & Gynecology; Visit Provider Obstetrics & Gynecology
DX: O99.713 Diseases of the skin and subcutaneous tissue complicating pregnancy, third trimester (principal); L29.9 Pruritus, unspecified; Z3A.30 30 weeks gestation of pregnancy
CPT/HCPCS: 36415; 80053; 82239

== ENCOUNTER 2024-04-22 12:57 | Outpatient (CLI) | payer BC, SELFPAY ==
--- NOTE | 2024-04-22 12:58 | US_ITS ---
PROCEDURE: US OB BPP W/FET-MAT S/D CLINICAL INDICATION: placental location and growth COMPARISON: US US OB /MATERNAL DETAIL from 01/28/2024 US US OB FOLLOW UP from 03/24/2024 FINDINGS: Transabdominal sonographic images of the uterus were obtained. From her established due date she is 32 weeks 3 days. The following parameters are obtained: Viable Fetus in the cephalic presentation with a posterior placenta grade 2. The placenta is well away from the internal cervical os Average ultrasound age is 31weeks 5days Estimated weight 1,769g, 3 lb 14 oz Cervix measures 3.7 cm in length. Measurements: heart Rate = 134bpm BPD = 31weeks 5days, 20 percentile HC = 32weeks 1day, 10 percentile AC = 31weeks 4days, 23 percentile FL = 31weeks 1day, 10 percentile HC/AC is 1.06 FL/BPD is 0.76 FL/AC is 0.22 15 percentile Amniotic fluid appears normal Doppler evaluation of the umbilical artery: SD ratio: 2.43-2.87 Resistive index: 0.65 No obvious anomalies evident.Kidneys, bladder, stomach, four-chamber heart, three-vessel cord appear normal. IMPRESSION: 1. Viable fetus in the cephalic presentation with a posterior placenta grade 2. 2. The fluid subjectively appears to be within normal limits. The DELANEY was not measured. 3. The placenta is well away from the internal cervical os today. 4. breathing movement and movement are seen. 5. S/D ratio is normal. 6. There has been good interval growth with the fetus currently 15th percentile. 7. Limited anatomical scan appears normal. Dictated by: Kehinde Winter MD 04/22/2024 17:14 Kehinde Winter MD in [facility] 04/22/2024 17:14
== END 2024-04-22 23:59 | disposition home or self-care (01) ==
LOC: RAD 12:58
PROVIDERS: PCP Pediatrics; Visit Provider Obstetrics & Gynecology
DX: O36.5930 Maternal care for other known or suspected poor fetal growth, third trimester, not applicable or unspecified (principal); Z3A.32 32 weeks gestation of pregnancy
CPT/HCPCS: 76811; 76819; 76820

== ENCOUNTER 2024-04-25 12:44 | Observation (INO) | payer BC, SELFPAY ==
[2024-04-25 08:59] VITALS: BMI 27.6
[2024-04-25 09:02] LABS: Microscopic, Urine URINE MICROSCOPIC (MICROSCOPIC)
[2024-04-25 09:06] VITALS: BP 126/86; PULSE 108; RESP 18; TEMP 37.1; O2SAT 97; BMI 27.6
--- NOTE | 2024-04-25 09:17 | US_ITS ---
PROCEDURE: US OB BIOPHYSICAL PROFILE CLINICAL INDICATION: bleeding COMPARISON: US US OB FOLLOW UP from 03/24/2024 US US OB BPP W/FET-MAT S/D from 04/22/2024 FINDINGS: Transabdominal and transvaginal sonographic images of the uterus were obtained. From her established due date she is 32weeks 6days. The following parameters are obtained: Viable Fetus in the cephalic presentation with a posterior placenta grade 2-3. There appears to be a small accessory lobe. Cervix measures 3.2-4.1 cm transvaginally. Measurements: heart Rate = 149bpm Amniotic fluid index: 8.98cm, MVP 3.47 cm. Qualitative AFV:2 Breathing movements: 2 Gross Body Movements: 2 Tone: 2 Biophysical profile score: 8 No obvious anomalies evident.Kidneys, profile, nasion, stomach, bladder, four-chamber heart, three-vessel cord appear normal. IMPRESSION: 1. Viable fetus in the cephalic presentation with a posterior placenta grade 2-3. 2. There appears to be a small accessory lobe. 3. No obvious evidence of abruption. 4. The fluid is within normal limits with an amniotic fluid index of 8.98 cm, MVP 3.47 cm. 5. Biophysical profile is 8/8 with good breathing movement and movement seen. 6. Limited anatomical scan appears normal. Dictated by: Kehinde Winter MD 04/25/2024 11:03 Kehinde Winter MD in [facility] 04/25/2024 11:03
[2024-04-25 09:20] LABS: Appearance,Urine CLEAR (Clear); Bilirubin,Urine Negative (Negative); Blood, Urine 2+ (Negative); Color,Urine YELLOW (Yellow); Glucose,Urine (UA) Negative (Negative); Ketones,Urine Negative (Negative); Leukocyte Esterase,Urine 2+ (Negative); Nitrate,Urine Negative (Negative); Protein,Urine Negative (Negative); Specific Gravity, Urine 1.015 (1.005-1.030); Urobilinogen,Urine 0.2 EU/dl (0.2)
[2024-04-25 09:32] LABS: Amphetamine/Metha Screen,Urine Negative ng/ml (<1000)
[2024-04-25 09:33] LABS: Barbiturates Screen,Urine Negative ng/ml (<200); Benzodiazepines Screen,Urine Negative ng/ml (<200)
[2024-04-25 09:34] LABS: Bacteria,Urine Trace /lpf; Cannabinoid Screen,Urine Negative ng/ml (<50); Cocaine Screen,Urine Negative ng/ml (<300)
[2024-04-25 09:35] LABS: Methadone Screen,Urine Negative ng/ml (<300)
[2024-04-25 09:36] LABS: Opiate Screen,Urine Negative ng/ml (<300); Phencyclidine Screen,Urine Negative ng/ml (<25)
[2024-04-25 12:16] LABS: Microscopic, Urine URINE MICROSCOPIC (MICROSCOPIC)
[2024-04-25 12:18] LABS: Appearance,Urine CLEAR (Clear); Bilirubin,Urine Negative (Negative); Blood, Urine 2+ (Negative); Color,Urine YELLOW (Yellow); Glucose,Urine (UA) Negative (Negative); Ketones,Urine Negative (Negative); Leukocyte Esterase,Urine 1+ (Negative); Nitrate,Urine Negative (Negative); Protein,Urine Negative (Negative); Urobilinogen,Urine 0.2 EU/dl (0.2)
[2024-04-25 12:28] LABS: Bacteria,Urine Trace /lpf; WBC,Urine Occasional #/hpf (0-3)
[2024-04-25 12:57] LABS: Basophils # 0.1 K/mm3 (0-0.2); Basophils % 0.9 % (0.1-2.0); Eosinophils # 0.4 K/mm3 (0.0-0.4); Eosinophils % 3.6 % (0.1-12.0); Hematocrit 33.1 % (37.0-47.0); Hemoglobin 10.9 g/dL (12.2-16.2); Lymphocytes # 1.9 K/mm3 (0.7-4.5); Lymphocytes % 17.5 % (10-50); Mean Corpuscular HGB Conc 32.8 g/dL (31.8-35.4); Mean Corpuscular Hemoglobin 30.3 pg (27.0-31.2); Mean Corpuscular Volume 92.5 fl (81-99); Mean Platelet Volume 8.9 fl (7.4-10.4); Monocytes # 0.5 K/mm3 (0.1-1.0); Monocytes % 4.7 % (1.7-9.3); Neutrophils % 73.4 % (37.0-80.0); Platelet Count 297 K/mm3 (142-424); Red Blood Count 3.58 M/mm3 (4.20-5.40); Red Cell Distribution Width 14.5 % (11.5-17.5); White Blood Count 10.9 K/mm3 (4.8-10.8)
[2024-04-25] MEDS: LACTATED RINGERS 1000ML 1,000 ML 999 ML IV (13:00)
[2024-04-25 13:01] VITALS: BP 112/61; PULSE 93; RESP 18; TEMP 37; O2SAT 100
[2024-04-25 13:07] LABS: Alanine Aminotransferase 16 U/L (12-78); Albumin Level 3.4 g/dl (3.5-5.0); Albumin/Globulin Ratio 1.2 (1.1-1.8); Alkaline Phosphatase 240 U/L (38-126); Anion Gap 10.9 mEq/L (5-15); Aspartate Amino Transferase 26 U/L (14-36); Bilirubin,Total 0.8 mg/dl (0.2-1.3); Blood Urea Nitrogen 3 mg/dl (7-17); Calcium 9.2 mg/dl (8.4-10.2); Carbon Dioxide 24 mmol/L (22.0-30.0); Chloride 104 mmol/L (98-107); Creatinine Clearance Estimated 197 mL/min (50-200); Estimated Glomerular Filt Rate 194 ml/min (>60); GFR (African American) 235 ML/MIN (>60); Globulin 2.9 g/dL (1.3-3.2); Glucose 74 mg/dl (74-100); Potassium 3.9 mmoL/L (3.5-5.1); Sodium 135 mmol/L (136-145); Total Protein,Serum 6.3 g/dl (6.3-8.2)
[2024-04-25] MEDS: LACTATED RINGERS 1000ML 1,000 ML 75 ML IV (15:50)
[2024-04-25 16:20] LABS: Fetal Fibronectin (Rapid) Negative (Negative)
--- NOTE | 2024-04-25 16:58 | EXP.OB.APHP ---
OB - H&P: HPI Antepartum History of Present Illness Chief complaint: vaginal bleeding History of present illness: Jeana Iyer is a pleasant 24-year-old G2, P1 who presented to labor and delivery today for vaginal bleeding that started this morning. She has an SAHIL of 06/14/2024 giving her a gestational age of 32 weeks and 6 days gestation. She also is having some pelvic cramping. This has been complicated by marginal placenta previa which is since resolved. The patient has been on pelvic rest for the majority of the . States she has had no intercourse in several weeks. Patient denies any fevers. Endorses good movement. Transvaginal ultrasound ordered which showed a long and closed cervical os SVE revealed a long close cervix Speculum exam showed a small amount of dark blood in the vaginal vault Genital culture swabs collected Patient will be admitted and observed overnight for further contractions. Heart rate tracing reassuring and reactive First urine was likely contaminated, UA obtained with clean-catch instructions provided and a second UA was sent which will be cultured History of Present Criteria for establishing EDC:: LMP confirmed by 1st trimester US (06/14/24 based on LMP c/w 9wk US) care: good care Medical complications: respiratory (Asthma) Labs Blood type: O (+) positive Rubella: immune RPR/VDRL: nonreactive GBS status: unknown HBsAG: negative PFSH PFSH Disclaimer: The information contained in this section may have been updated after the patient was seen, as this information can be updated by other users. 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; negative for Fragile X, SMA and DMD Marijuana use during delivery delivered Surgical History History of Family History Other Diabetes Heart attack Hyperlipidemia Stroke Thyroid disorder Social History Smoking Status: Never smoker alcohol intake: never substance use type: denies use current occupational status: employed Travel in the last 8 weeks: None Review of Systems Review of Systems Review of systems (narrative): Review of Systems Constitutional: Denies fever, chills, and sweats Eyes: Denies vision change/ pain Respiratory: Denies cough and shortness of breath Cardiovascular: Denies chest pain and lightheadedness Gastrointestinal: Denies abdominal pain. Endorses some uterine cramps. Denies nausea, vomiting. Genitourinary: Denies dysuria and incontinence. Endorses vaginal bleeding Musculoskeletal: Denies shoulder pain and back pain Neurological: Denies change in speech or headaches Meds Home Medications and Allergies Home Medications Medication Instructions Recorded Confirmed Type vits no.126-ferrous fum See Rx Instructions .Route .COMPLEX 11/13/23 04/23/24 History 28 mg iron-folic acid 800 mcg tablet (Classic ) promethazine 12.5 mg tablet 12.5 mg PO Q6H PRN nausea and 12/24/23 04/23/24 Rx vomiting #20 tabs albuterol sulfate 90 mcg/actuation 4 inh inhalation Q4H PRN shortness 02/25/24 04/23/24 Rx aerosol inhaler of breath or wheezing #8.5 grams fluticasone propionate 44 1 puff inhalation BID 03/10/24 04/23/24 History mcg/actuation HFA aerosol inhaler fluticasone propionate 50 1 spray intranasal DAILY 03/10/24 04/23/24 History mcg/actuation nasal spray,suspension epinephrine 0.3 mg/0.3 mL 0.3 mg IM PRN 03/24/24 04/11/24 History injection, auto-injector New Prescriptions to Start Prescriptions: Allergies Allergy/AdvReac Type Severity Reaction Status Date / Time bee pollen Allergy Severe Anaphylaxis Verified 04/23/24 14:29 OB - H&P: Exam Physical Exam Vital signs: Temp Pulse Resp BP Pulse Ox O2 Del Method 98.6 F 93 H 18 112/61 100 Room Air 04/25/24 13:01 04/25/24 13:01 04/25/24 13:01 04/25/24 13:01 04/25/24 13:01 04/25/24 13:01 Constitutional no acute distress, average body habitus and cooperative Routine HEENT Exam Head: Present normocephalic and atraumatic Eye: Present EOMI ENT: Present mucous membranes moist Routine Respiratory Exam Present CTA bilaterally, normal respiratory effort, able to speak in complete sentences and symmetric chest movement; Absent accessory muscle use or wheezes Routine Cardiovascular Exam Present tachycardia; Absent murmur Routine Abdominal Exam Present soft and normoactive bowel sounds; Absent tenderness, distended, rebound or guarding Routine Exam External: Present normal urethra appearance Comments: Cervix appears irritated and friable. Old dark blood in the vaginal vault. Routine Extremities Exam Present edema (+1) and full ROM; Absent cyanosis or clubbing Routine Skin Exam Present intact; Absent cyanosis, erythema, dry, pallor or mottling Routine Psychiatric Exam Present normal affect, normal thought process, cooperative, good insight and good judgment OB - Results Labs Labs: Short CBC 04/25/24 Range/Units 12:40 WBC 10.9 H (4.8-10.8) K/mm3 Hgb 10.9 L (12.2-16.2) g/dL Hct 33.1 L (37.0-47.0) % Plt Count 297 (142-424) K/mm3 BMP 04/25/24 12:40 Sodium 135 L Potassium 3.9 Chloride 104 Carbon Dioxide 24 BUN 3 L Creatinine 0.40 L Glucose 74 Calcium 9.2 Liver Function 04/25/24 Range/Units 12:40 Total Bilirubin 0.8 (0.2-1.3) mg/dl AST 26 (14-36) U/L ALT 16 (12-78) U/L Alkaline Phosphatase 240 H (38-126) U/L Albumin 3.4 L (3.5-5.0) g/dl Urine 04/25/24 04/25/24 Range/Units 08:55 11:33 Urine Color Yellow Yellow (Yellow) Urine Appearance Clear Clear (Clear) Urine pH 7.0 7.0 (5.0-8.5) Ur Specific [place] 1.015 1.010 (1.005-1.030) Urine Protein Negative Negative (Negative) Urine Glucose (UA) Negative Negative (Negative) OB - A/P Antepartum (1) Pruritus of : Status: Acute (2) Request for sterilization: Status: Acute (3) Asthma affecting , antepartum: Status: Acute (4) : Status: Acute (5) Vaginal bleeding affecting early : Status: Acute Additional Plan Additional Information:: Transvaginal ultrasound ordered which showed a long and closed cervical os. BPP was 8 out of 8. There does appear to be a small accessory lobe of the placenta but she does have a posterior placenta grade 2-3 without any signs of previa. No evidence of abruption. Consider repeating ultrasound tomorrow prior to discharge SVE revealed a long close cervix Speculum exam showed a small amount of dark blood in the vaginal vault Genital culture swabs collected Patient will be admitted and observed overnight for further contractions, to monitor vaginal bleeding, and to monitor the heart rate. Heart rate tracing reassuring and reactive First urine was likely contaminated, UA obtained with clean-catch instructions provided and a second UA was sent which will be cultured Patient has a regular diet and is eating without nausea or vomiting
[2024-04-25 20:06] VITALS: BP 108/75; PULSE 112; RESP 17; TEMP 36.6; O2SAT 100
[2024-04-25] MEDS: BETAMETHASONE ACET/PHOS 6MG/ML 5ML MDV 12 MG IM (22:39)
[2024-04-25] MEDS: ACETAMINOPHEN 500MG TAB 1000 MG PO (22:42)
[2024-04-26] MEDS: BUTORPHANOL TARTRATE 1 MG/ML VIAL IV ×2 (00:04→04:14)
[2024-04-26] MEDS: LACTATED RINGERS 1000ML 1,000 ML 75 ML IV (04:11)
[2024-04-26 04:43] VITALS: BP 109/66; PULSE 110; RESP 16; TEMP 36.9; O2SAT 97
[2024-04-26 08:15] VITALS: BP 99/51; PULSE 127; RESP 17; TEMP 36.7; O2SAT 99
--- NOTE | 2024-04-26 08:17 | US_ITS ---
PROCEDURE INFORMATION: Exam: US , Transvaginal Exam date and time: 04/26/2024 10:05 AM Clinical indication: status abnormalities: ; Other: Spotting; Single gestation; Third trimester (>=28 weeks 0 days); ; Additional info: F/u from bleeding yesterday. -- PT only light spotting today-- i spoke with ob Dr palm TECHNIQUE: Imaging protocol: Real-time transvaginal obstetrical ultrasound of the maternal pelvis with image documentation. Transvaginal imaging was used for better evaluation of the fetus, adnexa, and/or cervix. COMPARISON: No relevant prior studies available. FINDINGS: Gestation: Single intrauterine MATERNAL: Cervix: Cervix measures 3.67 cm. It is 5 mm in width. . No evidence of funneling but there is slight thickness to the cervix (series 1, image 8). Unknown etiology IMPRESSION: Cervix measures 3.67 cm. It is 5 mm in width. . No evidence of funneling but there is slight thickness to the cervix (series 1, image 8). Unknown etiology PROCEDURE INFORMATION: Exam: US Biophysical Profile Without Non-Stress Test Exam date and time: 04/26/2024 10:05 AM Age: 24 years old Clinical indication: status abnormalities: ; Other: Spotting; Single gestation; Third trimester (>=28 weeks 0 days); ; Additional info: F/u from bleeding yesterday. -- PT only light spotting today-- i spoke with ob Dr palm TECHNIQUE: Imaging protocol: US biophysical profile without non-stress testing. COMPARISON: US OB BPP W/FET-MAT S/D 04/22/2024 1:12 PM FINDINGS: heart rate: 143 bpm Placenta: Posterior fundal grade 2 placenta Amniotic fluid index: DELANEY is 7.23 cm. BIOPHYSICAL PROFILE: breathing (BPP): 2 /2 gross body movement (BPP): 2 /2 tone (BPP): 2 /2 Amniotic fluid (BPP): 2 /2 Biophysical profile score (BPP): 8 /8 MATERNAL ANATOMY: Cervix: Cervical length measures 3.83 cm. Other findings: Question of an accessory lobe of the placenta anteriorly. IMPRESSION: 1. The biophysical profile is 8/8. Two points each for breathing movement; gross body movement; tone; and qualitative amniotic fluid volume 2. Question of an accessory lobe of the placenta anteriorly.
--- NOTE | 2024-04-26 11:55 | EXP.DC.SUM ---
General Admission date:: 04/25/24 HPI HPI HPI: Chief complaint: vaginal bleeding History of present illness: Jeana Iyer is a pleasant 24-year-old G2, P1 who presented to labor and delivery today for vaginal bleeding that started this morning. She has an SAHIL of 06/14/2024 giving her a gestational age of 32 weeks and 6 days gestation. She also is having some pelvic cramping. This has been complicated by marginal placenta previa which is since resolved. The patient has been on pelvic rest for the majority of the . States she has had no intercourse in several weeks. Patient denies any fevers. Endorses good movement. Transvaginal ultrasound ordered which showed a long and closed cervical os SVE revealed a long close cervix Speculum exam showed a small amount of dark blood in the vaginal vault Genital culture swabs collected Patient will be admitted and observed overnight for further contractions. Heart rate tracing reassuring and reactive First urine was likely contaminated, UA obtained with clean-catch instructions provided and a second UA was sent which will be cultured History of Present Criteria for establishing EDC:: LMP confirmed by 1st trimester US (06/14/24 based on LMP c/w 9wk US) care: good care Medical complications: respiratory (Asthma) Labs Blood type: O (+) positive Rubella: immune RPR/VDRL: nonreactive GBS status: unknown HBsAG: negative Hospital Course Hospital Course Hospital Course: Jeana Iyer is a 24yo who presented to L&D yesterday with back pain and vaginal bleeding. After a through evaluation and prolonged monitoring and observation the patient reports her vaginal bleeding has improved and while she still has back pain it may be attributable to the hospital bed. She reports it is slightly improved. Last night the patient had a few irregular contractions and decision was made to give her a dose of steroids for lung maturity with the possibility of PTL/PTD. We have also followed her for tachycardia during this stay, but the pt states this is chronic since starting albuterol and being diagnosed with asthma. This is likely also secondary to physiologic changes of . This morning Jeana is doing significantly better. We have repeated her ultrasound and her cervical length has remained long and unchanged. She desires discharge home with short interval follow-up. She has been given an appointment to see Dr. Oliva next week. Of note on her ultrasound there was a accessory lobe on the placenta and it appeared to be maturing. We will monitor this closely throughout the remainder of her . Strict return precautions were reviewed with the patient in detail and she voiced understanding. Exam Data for Last 24 hours Vital signs and Labs for Last 24 Hours: Temp Pulse Resp BP Pulse Ox O2 Del Method 98.1 F 127 H 17 99/51 L 99 Room Air 04/26/24 08:15 04/26/24 08:15 04/26/24 08:15 04/26/24 08:15 04/26/24 08:15 04/26/24 08:15 Laboratory Results - last 24 hr 04/25/24 09:00: Fibronectin Negative 04/25/24 11:33: Urine Color Yellow, Urine Appearance Clear, Urine pH 7.0, Ur Specific [place] 1.010, Urine Protein Negative, Urine Glucose (UA) Negative, Urine Ketones Negative, Urine Blood 2+, Urine Nitrate Negative, Urine Bilirubin Negative, Urine Urobilinogen 0.2, Ur Leukocyte Esterase 1+ A, Urine RBC None, Urine WBC Occasional, Ur Squamous Epith Cells 3-5, Urine Bacteria Trace 04/25/24 12:40: WBC 10.9 H, RBC 3.58 L, Hgb 10.9 L, Hct 33.1 L, MCV 92.5, MCH 30.3, MCHC 32.8, RDW 14.5, Plt Count 297, MPV 8.9, Neut % (Auto) 73.4, Lymph % (Auto) 17.5, [place] % (Auto) 4.7, Eos % (Auto) 3.6, Baso % (Auto) 0.9, Neut # (Auto) 8.0 H, Lymph # (Auto) 1.9, [place] # (Auto) 0.5, Eos # (Auto) 0.4, Baso # (Auto) 0.1, Sodium 135 L, Potassium 3.9, Chloride 104, Carbon Dioxide 24, Anion Gap 10.9, BUN 3 L, Creatinine 0.40 L, Estimated Creat Clear 197, Estimated GFR 194, Est GFR ( Amer) 235, Glucose 74, Calcium 9.2, Total Bilirubin 0.8, AST 26, ALT 16, Alkaline Phosphatase 240 H, Total Protein 6.3, Albumin 3.4 L, Globulin 2.9, Albumin/Globulin Ratio 1.2 I & O for Last 24 hours: Intake & Output 04/23/24 04/24/24 04/25/24 04/26/24 23:59 23:59 23:59 23:59 Weight 128 lb Microbiology Reports for the Last 24 Hours: Microbiology 04/25/24 13:25 Vaginal Gram Stain - Final 04/25/24 13:25 Vaginal Wound Culture - Preliminary Constitutional Constitutional: no acute distress *Routine HEENT Exam Head: Present normocephalic Eye: Present EOMI and PERRL ENT: Present mucous membranes moist *Routine Neck Exam Neck: Present supple; Absent lymphadenopathy *Routine Respiratory Exam Respiratory: Present CTA bilaterally *Routine Cardiovascular Exam Cardiovascular: Present RRR *Routine Abdominal Exam Abdominal: Present soft and normoactive bowel sounds; Absent tenderness *Routine Extremities Exam Extremities: Absent cyanosis, clubbing or edema *Routine Skin Exam Skin: Present warm; Absent rash *Routine Neurological Exam Neurological: Present alert and oriented X3 Results Data Completed and Pending Labs on day of discharge: Labs from last 24 hours 04/25/24 04/25/24 04/25/24 12:40 11:33 09:00 WBC 10.9 H RBC 3.58 L Hgb 10.9 L Hct 33.1 L MCV 92.5 MCH 30.3 MCHC 32.8 RDW 14.5 Plt Count 297 MPV 8.9 Neut % (Auto) 73.4 Lymph % (Auto) 17.5 [place] % (Auto) 4.7 Eos % (Auto) 3.6 Baso % (Auto) 0.9 Neut # (Auto) 8.0 H Lymph # (Auto) 1.9 [place] # (Auto) 0.5 Eos # (Auto) 0.4 Baso # (Auto) 0.1 Sodium 135 L Potassium 3.9 Chloride 104 Carbon Dioxide 24 Anion Gap 10.9 BUN 3 L Creatinine 0.40 L Estimated Creat Clear 197 Estimated GFR 194 Est GFR ( Amer) 235 Glucose 74 Calcium 9.2 Total Bilirubin 0.8 AST 26 ALT 16 Alkaline Phosphatase 240 H Total Protein 6.3 Albumin 3.4 L Globulin 2.9 Albumin/Globulin Ratio 1.2 Urine Color Yellow Urine Appearance Clear Urine pH 7.0 Ur Specific [place] 1.010 Urine Protein Negative Urine Glucose (UA) Negative Urine Ketones Negative Urine Blood 2+ Urine Nitrate Negative Urine Bilirubin Negative Urine Urobilinogen 0.2 Ur Leukocyte Esterase 1+ A Urine RBC None Urine WBC Occasional Ur Squamous Epith Cells 3-5 Urine Bacteria Trace Fibronectin Negative Preliminary micro results at discharge 04/25/24 13:25 Wound Culture - Preliminary Vaginal DS: Diagnosis Discharge Diagnosis (1) Pruritus of : Status: Acute Code(s): O99.719 - Diseases of the skin and subcutaneous tissue complicating , unspecified trimester; L29.9 - Pruritus, unspecified (2) Request for sterilization: Status: Acute Code(s): Z30.2 - Encounter for sterilization (3) Asthma affecting , antepartum: Status: Acute Code(s): O99.519 - Diseases of the respiratory system complicating , unspecified trimester; J45.909 - Unspecified asthma, uncomplicated (4) : Status: Acute Code(s): Z34.90 - Encounter for supervision of normal , unspecified, unspecified trimester (5) Vaginal bleeding affecting early : Status: Acute Code(s): O20.9 - Hemorrhage in early , unspecified Meds Home Medications and Allergies Home Medications Medication Instructions Recorded Confirmed Type vits no.126-ferrous fum 1 tab PO DAILY 11/13/23 04/26/24 History 28 mg iron-folic acid 800 mcg tablet (Classic ) fluticasone propionate 44 1 puff inhalation BID 03/10/24 04/25/24 History mcg/actuation HFA aerosol inhaler fluticasone propionate 50 1 spray intranasal DAILY 03/10/24 04/25/24 History mcg/actuation nasal spray,suspension epinephrine 0.3 mg/0.3 mL 0.3 mg IM NEEDED PRN Allergic 03/24/24 04/26/24 History injection, auto-injector Reaction albuterol sulfate 90 mcg/actuation 4 inh inhalation Q4HP PRN 04/26/24 04/26/24 History aerosol inhaler shortness of breath or wheezing New Prescriptions to Start Prescriptions: Allergies Allergy/AdvReac Type Severity Reaction Status Date / Time bee pollen Allergy Severe Anaphylaxis Verified 04/25/24 22:00 Discharge Plan Disposition Patient Disposition: Home, Self-Care Follow up Plan Follow up with: Madyson Oliva DO [Staff Physician] - 05/01/24 10:15 am Prescriptions/Medication Reconciliation: Continued fluticasone propionate 50 mcg/actuation spray,suspension 1 spray intranasal DAILY Patient Comments: SPRAY 1 SPRAY BY NASAL ROUTE EVERY DAY fluticasone propionate 44 mcg/actuation HFA aerosol inhaler 1 puff inhalation BID Patient Comments: INHALE 1 PUFF INTO THE LUNGS 2 TIMES DAILY. RINSE MOUTH AFTER USE. epinephrine 0.3 mg/0.3 mL auto-injector 0.3 mg IM NEEDED PRN (Reason: Allergic Reaction) Patient Comments: USE DIRECTED FOR ANAPHYLAXIS Classic 28 mg iron- 800 mcg tablet 1 tab PO DAILY Rx Instructions: Daily albuterol sulfate 90 mcg/actuation HFA aerosol inhaler 4 inh inhalation Q4HP PRN (Reason: shortness of breath or wheezing) Problem Reconciliation Problems Reviewed?: Yes Patient Discharge Instructions ACTIVITY: Continue current activity DIET: regular diet Patient Instructions: DI for Vaginal Bleeding During , How to Do Kick Counts, Antepartum Care Providers Primary Care Provider: Nathaniel Glass Admit Provider: Talya Carter Attending Provider: Talya Carter
[2024-04-26] MEDS: BETAMETHASONE ACET/PHOS 6MG/ML 5ML MDV 12 MG IM (16:00)
--- NOTE | 2024-04-28 08:05 | SW/DCPLANNER ---
I received a consult on this patient over the weekend due to stress level on PCS4. Patient discharged home over the weekend.
[2024-04-28 20:10] LABS: Neisseria gonorrhoeae, NAA Negative (Negative)
== END 2024-04-26 16:04 | disposition home or self-care (01) ==
LOC: OBOUT 12:45 → OB 12:45
PROVIDERS: Admitting Provider Obstetrics & Gynecology; PCP Pediatrics; Visit Provider Obstetrics & Gynecology
DX: O46.93 Antepartum hemorrhage, unspecified, third trimester (principal); Z3A.32 32 weeks gestation of pregnancy; O99.891 Other specified diseases and conditions complicating pregnancy; R00.0 Tachycardia, unspecified; O26.93 Pregnancy related conditions, unspecified, third trimester
CPT/HCPCS: 59025; 76819; 80053; 80307; 81001; 82731; 85025; 87070; 87075; 87086; 87205; 87491; 87529; 87591; 87661; 87798; 87801; 94761; G0283; G0378; J0595; J0702; J7120

== ENCOUNTER 2024-04-30 14:17 | Outpatient (CLI) | payer BC, SELFPAY ==
[2024-04-30 15:15] VITALS: BMI 28.1
[2024-04-30 15:18] LABS: Microscopic, Urine URINE MICROSCOPIC (MICROSCOPIC)
[2024-04-30 15:25] LABS: Appearance,Urine SL CLOUDY (Clear); Bilirubin,Urine Negative (Negative); Blood, Urine Negative (Negative); Color,Urine YELLOW (Yellow); Glucose,Urine (UA) Negative (Negative); Ketones,Urine Negative (Negative); Leukocyte Esterase,Urine 1+ (Negative); Nitrate,Urine Negative (Negative); Protein,Urine Negative (Negative); Specific Gravity, Urine 1.015 (1.005-1.030); Urobilinogen,Urine 0.2 EU/dl (0.2)
[2024-04-30 15:38] LABS: Barbiturates Screen,Urine Negative ng/ml (<200)
[2024-04-30 15:39] LABS: Amphetamine/Metha Screen,Urine Negative ng/ml (<1000); Benzodiazepines Screen,Urine Negative ng/ml (<200)
[2024-04-30 15:40] LABS: Methadone Screen,Urine Negative ng/ml (<300)
[2024-04-30 15:41] LABS: Cannabinoid Screen,Urine Negative ng/ml (<50); Cocaine Screen,Urine Negative ng/ml (<300)
[2024-04-30 15:42] LABS: Opiate Screen,Urine Negative ng/ml (<300); Phencyclidine Screen,Urine Negative ng/ml (<25)
[2024-04-30 15:47] LABS: Amorphous Sediment,Urine 1+ /lpf; Bacteria,Urine Trace /lpf; WBC,Urine Occasional #/hpf (0-3)
[2024-04-30 16:24] VITALS: BP 110/67; PULSE 108; RESP 16; TEMP 36.9; O2SAT 97; BMI 28.0
== END 2024-04-30 16:09 | disposition home or self-care (01) ==
LOC: OBOUT 14:18 → OB 14:18
PROVIDERS: PCP Pediatrics; Visit Provider Obstetrics & Gynecology
DX: O47.03 False labor before 37 completed weeks of gestation, third trimester (principal); Z3A.33 33 weeks gestation of pregnancy
CPT/HCPCS: 80307; 81001; 87086; 87088; 87186; G0463

== ENCOUNTER 2024-05-02 11:57 | Outpatient (CLI) | payer BC, SELFPAY ==
[2024-05-02] MEDS: cefTRIAXone 1GM VIAL 1 GM IM (12:41)
[2024-05-02 12:55] VITALS: BP 122/70; PULSE 104; RESP 18; TEMP 36.4; O2SAT 99
== END 2024-05-02 12:55 | disposition home or self-care (01) ==
LOC: INF 11:58
PROVIDERS: PCP Pediatrics; Visit Provider Obstetrics & Gynecology
DX: N76.0 Acute vaginitis (principal); Z79.2 Long term (current) use of antibiotics
CPT/HCPCS: 96372; J0696

== ENCOUNTER 2024-05-03 11:21 | Outpatient (CLI) | payer BC, SELFPAY ==
[2024-05-03 11:32] VITALS: BP 97/70; PULSE 75; RESP 16; O2SAT 100
[2024-05-03] MEDS: cefTRIAXone 1GM VIAL 1 GM IM (11:38)
== END 2024-05-03 11:41 | disposition home or self-care (01) ==
LOC: INF 11:22
PROVIDERS: PCP Pediatrics; Visit Provider Obstetrics & Gynecology
DX: N76.0 Acute vaginitis (principal); Z79.2 Long term (current) use of antibiotics
CPT/HCPCS: 96372; J0696

== ENCOUNTER 2024-05-04 10:10 | Outpatient (CLI) | payer BC, SELFPAY ==
[2024-05-04 10:26] VITALS: BP 129/72; RESP 18
[2024-05-04] MEDS: cefTRIAXone 1GM VIAL 1 GM IM (10:26)
== END 2024-05-04 10:26 | disposition home or self-care (01) ==
LOC: INF 10:11
PROVIDERS: PCP Pediatrics; Visit Provider Obstetrics & Gynecology
DX: N76.0 Acute vaginitis (principal); Z79.2 Long term (current) use of antibiotics
CPT/HCPCS: 96372; J0696

== ENCOUNTER 2024-05-04 10:27 | Emergency (ER) | payer BC, SELFPAY ==
[2024-05-04 10:30] VITALS: BP 122/71; PULSE 98; RESP 18; TEMP 36.8; O2SAT 100; BMI 28.5
[2024-05-04 10:55] LABS: UTC Strep Screen (Rapid) Negative (Negative)
--- NOTE | 2024-05-04 10:55 | ED_ITS ---
Discharge Plan Disposition Patient Disposition: Home, Self-Care Condition: Good Prescriptions Prescriptions: No Action fluticasone propionate 50 mcg/actuation spray,suspension 1 spray intranasal DAILY Patient Comments: SPRAY 1 SPRAY BY NASAL ROUTE EVERY DAY fluticasone propionate 44 mcg/actuation HFA aerosol inhaler 1 puff inhalation BID Patient Comments: INHALE 1 PUFF INTO THE LUNGS 2 TIMES DAILY. RINSE MOUTH AFTER USE. epinephrine 0.3 mg/0.3 mL auto-injector 0.3 mg IM NEEDED PRN (Reason: Allergic Reaction) Patient Comments: USE DIRECTED FOR ANAPHYLAXIS Classic 28 mg iron- 800 mcg tablet 1 tab PO DAILY Rx Instructions: Daily metronidazole 0.75 % (37.5mg/5 gram) gel 1 appful vaginal HS 5 Days Qty: 70 0RF albuterol sulfate 90 mcg/actuation HFA aerosol inhaler 4 inh inhalation Q4HP PRN (Reason: shortness of breath or wheezing) ceftriaxone [Rocephin] 1 gram Recon Soln See Rx Instructions .ROUTE .COMPLEX Rx Instructions: one shot daily for vaginal infection per OB Referrals Follow up/Referrals: Nathaniel Glass [Primary Care Provider] - See instructions Activity Restrictions/Add. Instructions Additional Instructions/Restrictions: Drink plenty of fluids. Take tylenol for pain or fever. Follow up with your regular doctor. GO TO THE ER FOR ANY WORSENING SYMPTOMS Clinical Impressions Clinical Impression: Viral syndrome Instructions Patient Instructions: DI for Viral Syndrome Discharge ED Provider[place] [facility] [place] General Stated complaint: sore throat, pain in R ear, nausea Mode of Arrival: Ambulatory Source of Information: Patient Limitations: No Limitations Time Seen by Provider: 05/04/24 10:54 Description of Symptoms (Recalled from Triage Doc. by RN): Pt's symptoms are sore throat, and right ear pain. HEENT Symptoms (Recalled from RN notes): Yes Resp Symptoms (Recalled from RN notes): No Skin Symptoms (Recalled from RN notes): No MS Symptoms (Recalled from RN notes): No Functional Status (Recalled from RN notes): n/a History of Present Illness Provider Complaint: She states that for the past 3 days she has had worsening sore throat and right ear pain. She is currently getting daily rocephin i njections for strep b vaginal infection. She is 35 weeks . Related Data Home Medications Medication Instructions Recorded Confirmed vits no.126-ferrous fum 1 tab PO DAILY 11/13/23 05/04/24 28 mg iron-folic acid 800 mcg tablet (Classic ) fluticasone propionate 44 1 puff inhalation BID 03/10/24 05/04/24 mcg/actuation HFA aerosol inhaler fluticasone propionate 50 1 spray intranasal DAILY 03/10/24 05/04/24 mcg/actuation nasal spray,suspension epinephrine 0.3 mg/0.3 mL 0.3 mg IM NEEDED PRN Allergic 03/24/24 05/04/24 injection, auto-injector Reaction albuterol sulfate 90 mcg/actuation 4 inh inhalation Q4HP PRN 04/26/24 05/04/24 aerosol inhaler shortness of breath or wheezing ceftriaxone 1 gram intravenous See Rx Instructions .Route .COMPLEX 05/04/24 05/04/24 solution Previous Rx's Medication Instructions Recorded metronidazole 0.75 % (37.5 mg/5 1 appful vaginal HS 5 days #70 04/30/24 gram) vaginal gel grams Allergies Allergy/AdvReac Type Severity Reaction Status Date / Time bee pollen Allergy Severe Anaphylaxis Verified 05/04/24 10:46 Worker's Comp Is this a Worker's Comp case?: No [facility] Disclaimer: The information contained in this section may have been updated after the patient was seen, as this information can be updated by other users. Medical History (Updated 05/04/24 @ 11:39 by Neel Soto APRN) Dizziness Dyspnea Pruritus of Request for sterilization Asthma affecting , antepartum Cystic fibrosis gene carrier Marijuana use during Surgical History History of Family History Other Diabetes Heart attack Hyperlipidemia Stroke Thyroid disorder Social History Smoking Status: Never smoker alcohol intake: never substance use type: denies use current occupational status: employed Travel in the last 8 weeks: None ROS Obtained: Yes All systems reviewed & no additional complaints except as documented Constitutional Constitutional: Reports chills and Reports fever(s) Eyes Eyes: Denies eye discharge ENT Ears, Nose, Mouth, and Throat: Reports as per HPI Cardiovascular Cardiovascular: Denies chest pain Respiratory Respiratory: Denies chest congestion and Reports cough Gastrointestinal Gastrointestingal: Reports nausea; Denies abdominal pain, constipation, cramping, diarrhea or vomiting Musculoskeletal Musculoskeletal: Denies arthralgias Integumentary/Breasts Skin/Breast: Denies rash Neurologic Neurologic: Denies paresthesias Physical Exam General General appearance: alert and in no apparent distress Head Head exam: atraumatic, normocephalic and normal inspection Eye Eye exam: Present normal appearance, PERRL and EOMI ENT ENT exam: Present normal exam, normal oropharynx, mucous membranes moist, TM's normal bilaterally and normal external ear exam Neck Neck exam: Present normal inspection, full ROM and trachea midline; Absent meningismus or lymphadenopathy Chest Chest inspection: Present normal inspection and symmetric chest wall rise; Absent tenderness Respiratory Respiratory exam: Present normal lung sounds bilaterally; Absent respiratory distress Cardiovascular Cardiovascular exam: Present regular rate and normal rhythm; Absent JVD Abdominal Exam Abdominal exam: Present soft and normal bowel sounds; Absent distention, t enderness or guarding Extremities Exam Extremities exam: Present normal inspection, full ROM and normal capillary refill; Absent calf tenderness Back Exam Back exam: Present normal inspection; Absent tenderness Neurological Exam Neurological exam: Present alert and oriented X3 Psychiatric Psychiatric exam: Present normal affect and normal mood Skin Skin exam: Present warm, dry, intact and normal color Lymphatic Lymphatic Findings: no adenopathy Medical Decision Making Medical Records Medical records reviewed: No I reviewed the patient's medical records. Ralph Inquiry Pt receiving controlled substance: No Vital Signs: 05/04/24 10:30 Temperature 98.3 F Temperature Source Oral Pulse Rate [Right Radial] 98 H Respiratory Rate 18 Blood Pressure [Right Arm] 122/71 Blood Pressure Mean [Right Arm] 88 Blood Pressure Source [Right Arm] Automatic Cuff Blood Pressure Position [Right Arm] Sitting 02 Sat by Pulse Oximetry 100 Oxygen Delivery Method Room Air Lab Data Lab results reviewed: Yes I reviewed the patient's lab results.
--- NOTE | 2024-05-04 11:12 | PC.NURSE ---
Sent purple top blood vial to lab via tube system.
[2024-05-04 11:24] LABS: Monoscreen (Rapid) Negative (Negative)
[2024-05-04 11:44] VITALS: BP 122/71; PULSE 98; RESP 18; TEMP 36.8; O2SAT 100
--- NOTE | 2024-05-04 11:45 | PC.NURSE ---
Sent full panel to lab via tube system.
[2024-05-04 11:46] LABS: Adenovirus,PCR Not Detected (NotDetected); Bordetella Pertussis Not Detected (NotDetected); Chlamydophila Pneumoniae, PCR Not Detected (NotDetected); Coronavirus 19, PCR Not Detected (NotDetected); Coronavirus 229E Not Detected (NotDetected); Coronavirus NL63 Not Detected (NotDetected); Coronavirus OC43 Not Detected (NotDetected); Coronovirus HKU1,PCR Not Detected (NotDetected); Human Metapneumovirus Not Detected (NotDetected); Influenza A, PCR Not Detected (NotDetected); Influenza AH1, 2009 Not Detected (NotDetected); Influenza AH1, PCR Not Detected (NotDetected); Influenza AH3,PCR Not Detected (NotDetected); Influenza B, PCR Not Detected (NotDetected); Mycoplasma Pneumoniae, PCR Not Detected (NotDetected); Parainfluenza 1, PCR Not Detected (NotDetected); Parainfluenza 2, PCR Not Detected (NotDetected); Parainfluenza 3, PCR Not Detected (NotDetected); Parainfluenza 4, PCR Not Detected (NotDetected); Respiratory Syncytial Virus Not Detected (NotDetected); Rhinovirus/Enterovirus Not Detected (NotDetected)
--- NOTE | 2024-05-04 16:05 | PC.NURSE ---
Reviewed full panel results which all were negative. No further action is required.
--- NOTE | 2024-05-04 16:06 | PC.NURSE ---
Called pt about full panel results LM.
== END 2024-05-04 11:44 | disposition home or self-care (01) ==
PROVIDERS: Emergency Provider Nurse Practitioner Family; PCP Pediatrics
DX: R07.0 Pain in throat (principal); H92.01 Otalgia, right ear; B34.9 Viral infection, unspecified
CPT/HCPCS: 86318; 87581; 87632; 87635; 87798; 87880; 99204; 99212; G0463

== ENCOUNTER 2024-05-05 10:02 | Outpatient (CLI) | payer BC, SELFPAY ==
[2024-05-05] MEDS: cefTRIAXone 1GM VIAL 1 GM IM (10:30)
[2024-05-05 10:35] VITALS: BP 108/76; PULSE 72; RESP 18; TEMP 36.8; O2SAT 98
== END 2024-05-05 10:40 | disposition home or self-care (01) ==
LOC: INF 10:03
PROVIDERS: PCP Pediatrics; Visit Provider Obstetrics & Gynecology
DX: N76.0 Acute vaginitis (principal); Z79.2 Long term (current) use of antibiotics
CPT/HCPCS: 96372; J0696

== ENCOUNTER 2024-05-06 10:35 | Outpatient (CLI) | payer BC, SELFPAY ==
[2024-05-06 10:51] VITALS: BP 114/71; PULSE 110; RESP 16; TEMP 36.8; O2SAT 98
[2024-05-06] MEDS: cefTRIAXone 1GM VIAL 1 GM IM (10:51)
== END 2024-05-06 11:08 | disposition home or self-care (01) ==
LOC: INF 10:36
PROVIDERS: PCP Pediatrics; Visit Provider Obstetrics & Gynecology
DX: N76.0 Acute vaginitis (principal); Z79.2 Long term (current) use of antibiotics
CPT/HCPCS: 96372; J0696

== ENCOUNTER 2024-05-07 13:32 | Outpatient (CLI) | payer BC, SELFPAY ==
[2024-05-07 14:10] VITALS: BP 108/65; PULSE 72; RESP 18; TEMP 36.7; O2SAT 99
[2024-05-07] MEDS: cefTRIAXone 1GM VIAL 1 GM IM (14:10)
== END 2024-05-07 14:15 | disposition home or self-care (01) ==
LOC: INF 13:33
PROVIDERS: PCP Pediatrics; Visit Provider Obstetrics & Gynecology
DX: N76.0 Acute vaginitis (principal); Z79.2 Long term (current) use of antibiotics
CPT/HCPCS: 96372; J0696

== ENCOUNTER 2024-05-08 11:00 | Outpatient (CLI) | payer BC, SELFPAY ==
[2024-05-08] MEDS: cefTRIAXone 1GM VIAL 1 GM IM (11:24)
== END 2024-05-08 23:59 | disposition home or self-care (01) ==
LOC: INF 11:01
PROVIDERS: PCP Pediatrics; Visit Provider Obstetrics & Gynecology
DX: N76.0 Acute vaginitis (principal); Z79.2 Long term (current) use of antibiotics
CPT/HCPCS: 96372; 96374; J0696

== ENCOUNTER 2024-05-27 07:45 | Outpatient (CLI) | payer BC, SELFPAY ==
[2024-05-27 07:57] VITALS: BP 121/69; PULSE 97; RESP 18; TEMP 36.7; O2SAT 100; BMI 30.9
[2024-05-27 08:14] LABS: Microscopic, Urine URINE MICROSCOPIC (MICROSCOPIC)
[2024-05-27 08:26] LABS: Appearance,Urine CLEAR (Clear); Bilirubin,Urine Negative (Negative); Blood, Urine Negative (Negative); Color,Urine YELLOW (Yellow); Glucose,Urine (UA) Negative (Negative); Ketones,Urine Negative (Negative); Leukocyte Esterase,Urine 3+ (Negative); Nitrate,Urine Negative (Negative); PH,Urine 6.5 (5.0-8.5); Protein,Urine Negative (Negative); Urobilinogen,Urine 0.2 EU/dl (0.2)
[2024-05-27 08:40] LABS: Amphetamine/Metha Screen,Urine Negative ng/ml (<1000)
[2024-05-27 08:41] LABS: Barbiturates Screen,Urine Negative ng/ml (<200)
[2024-05-27 08:42] LABS: Benzodiazepines Screen,Urine Negative ng/ml (<200); Cannabinoid Screen,Urine Negative ng/ml (<50)
[2024-05-27 08:43] LABS: Cocaine Screen,Urine Negative ng/ml (<300)
[2024-05-27 08:44] LABS: Methadone Screen,Urine Negative ng/ml (<300); Opiate Screen,Urine Negative ng/ml (<300)
[2024-05-27 08:45] LABS: Phencyclidine Screen,Urine Negative ng/ml (<25)
[2024-05-27 08:48] LABS: Bacteria,Urine 1+ /lpf; Squamous Epithelial Cell,Urine 20-50 #/hpf (0-5)
[2024-05-27] MEDS: LACTATED RINGERS 1000ML 1,000 ML 999 ML IV (09:20)
== END 2024-05-27 10:46 | disposition home or self-care (01) ==
LOC: OBOUT 07:47 → OB 07:48
PROVIDERS: PCP Pediatrics; Visit Provider Obstetrics & Gynecology
DX: O47.1 False labor at or after 37 completed weeks of gestation (principal); Z3A.37 37 weeks gestation of pregnancy
CPT/HCPCS: 80307; 81001; 87086; G0463; J7120

== ENCOUNTER 2024-05-31 02:05 | Inpatient (IN) | payer BC, SELFPAY ==
[2024-05-31] VITALS (7 sets, daily range): BP systolic 117–136; BP diastolic 63–88; PULSE 87–103; RESP 14–18; TEMP 36.6–36.9; O2SAT 95–100; BMI 31.6; BMI 31.4
[2024-05-31 01:16] LABS: Microscopic, Urine URINE MICROSCOPIC (MICROSCOPIC)
[2024-05-31 01:18] LABS: Appearance,Urine CLEAR (Clear); Bilirubin,Urine Negative (Negative); Blood, Urine Negative (Negative); Color,Urine YELLOW (Yellow); Glucose,Urine (UA) Negative (Negative); Ketones,Urine Negative (Negative); Leukocyte Esterase,Urine 1+ (Negative); Nitrate,Urine Negative (Negative); Protein,Urine Negative (Negative); Specific Gravity, Urine 1.015 (1.005-1.030); Urobilinogen,Urine 0.2 EU/dl (0.2)
[2024-05-31 01:30] LABS: Barbiturates Screen,Urine Negative ng/ml (<200)
[2024-05-31 01:31] LABS: Benzodiazepines Screen,Urine Negative ng/ml (<200)
[2024-05-31 01:32] LABS: Amphetamine/Metha Screen,Urine Negative ng/ml (<1000); Cannabinoid Screen,Urine Negative ng/ml (<50)
[2024-05-31 01:33] LABS: Cocaine Screen,Urine Negative ng/ml (<300); Methadone Screen,Urine Negative ng/ml (<300)
[2024-05-31 01:35] LABS: Opiate Screen,Urine Negative ng/ml (<300); Phencyclidine Screen,Urine Negative ng/ml (<25)
[2024-05-31 01:39] LABS: Bacteria,Urine Trace /lpf
[2024-05-31 01:40] LABS: Fetal Membrane Rupture (Rapid) Positive (Negative)
[2024-05-31] MEDS: LACTATED RINGERS 1000ML 1,000 ML 999 ML IV (02:04)
--- NOTE | 2024-05-31 02:23 | P.HP_ITS ---
OB - H&P: HPI Antepartum History of Present Illness Chief complaint: Leakage of fluid, contractions History of present illness: Ms Jeana Iyer is a 24 yo at 38w0d who presents to [facility] L&D with complaint of leakage of fluid after voiding at midnight. It happend again about 30 minutes later. She admits she soaked through two pairs of underwear. Contraction started on her way to the hospital. Baby is active. Upon evaluation in L&D Amnisure positive and cervical exam was 360/-3. She has had good care. complicated by asthma, marijuana use and history of c- section x 1. She is complete with childbearing and desire permanent sterilization. History of Present Criteria for establishing EDC:: LMP confirmed by 1st trimester US care: good care Ultrasounds: normal mid trimester US Obstetrical complications: previous Medical complications: respiratory (asthma) Labs Blood type: O (+) positive Rubella: immune RPR/VDRL: nonreactive HBsAG: negative PFSH PFS Disclaimer: The information contained in this section may have been updated after the patient was seen, as this information can be updated by other users. 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 Marijuana use during Surgical History History of Family History Other Diabetes Heart attack Hyperlipidemia Stroke Thyroid disorder Social History Smoking Status: Never smoker alcohol intake: never substance use type: denies use current occupational status: employed Travel in the last 8 weeks: None Review of Systems Review of Systems Review of systems:: pertinent systems reviewed and negative unless documented below *Genitourinary Comments: + leakage of fluid, contractions Meds Home Medications and Allergies Home Medications ?Medication ?Instructions ?Recorded ?Confirmed ?Type vits no.126-ferrous fum 1 tab PO DAILY 11/13/23 05/29/24 History 28 mg iron-folic acid 800 mcg tablet (Classic ) fluticasone propionate 44 1 puff inhalation BID 03/10/24 05/29/24 History mcg/actuation HFA aerosol inhaler fluticasone propionate 50 1 spray intranasal DAILY 03/10/24 05/29/24 History mcg/actuation nasal spray,suspension epinephrine 0.3 mg/0.3 mL 0.3 mg IM NEEDED PRN Allergic 03/24/24 05/29/24 History injection, auto-injector Reaction albuterol sulfate 90 mcg/actuation 4 inh inhalation Q4HP PRN 04/26/24 05/29/24 History aerosol inhaler shortness of breath or wheezing amoxicillin 500 mg capsule 500 mg PO BID #10 caps 05/27/24 05/29/24 Rx New Prescriptions to Start Prescriptions: Allergies Allergy/AdvReac Type Severity Reaction Status Date / Time bee pollen Allergy Severe Anaphylaxis Verified 05/29/24 15:16 OB - H&P: Exam Physical Exam Vital signs: Temp Pulse Resp BP Pulse Ox O2 Del Method 98.2 F 103 H 17 126/88 98 Room Air 05/31/24 01:34 05/31/24 01:34 05/31/24 01:34 05/31/24 01:34 05/31/24 01:34 05/31/24 01:34 Constitutional no acute distress and cooperative Routine HEENT Exam Head: Present normocephalic and atraumatic Eye: Absent conjunctivae pink ENT: Present mucous membranes moist Routine Neck Exam Present full ROM Routine Respiratory Exam Present CTA bilaterally and normal respiratory effort Routine Cardiovascular Exam Present RRR Routine Abdominal Exam Present soft (Gravid); Absent tenderness Routine Rectal Exam Patient deferred: visual exam Routine Exam External: Present normal urethra appearance; Absent erythema, tenderness, lesions or lacerations Routine Extremities Exam Present edema (+3 bilateral lower extremity edema ) and full ROM; Absent calf tenderness Routine Neurological Exam Present alert, moving all extremities and normal speech Routine Psychiatric Exam Present normal affect and cooperative Detailed Labor and Delivery Exam Dilation (cm): 3 Effacement (%): 60 station: -3 Membranes: spontaneously ruptured (at 0000 on 05/31/24) Amniotic fluid: clear Baseline heart rate: 120 monitor accelerations: Present monitor decelerations: None exterminator termite variability: Average (6-10) Contraction frequency (min): 3 Contraction intensity: Moderate OB - Results Labs Labs: Urine 05/31/24 Range/Units Unknown Urine Color Yellow (Yellow) Urine Appearance Clear (Clear) Urine pH 7.0 (5.0-8.5) Ur Specific [place] 1.015 (1.005-1.030) Urine Protein Negative (Negative) Urine Glucose (UA) Negative (Negative) OB - A/P Antepartum (1) Spontaneous onset of labor after 37 but before 39 completed weeks gestation with delivery by planned section: Status: Acute (2) Spontaneous rupture of membranes: Status: Acute (3) 38 weeks gestation of : Status: Acute (4) History of : Status: Acute (5) Request for sterilization: Status: Acute (6) Asthma affecting , antepartum: Status: Acute (7) Marijuana use during : Status: Acute (8) Cystic fibrosis 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 All questions addressed and answered. She voiced understanding of risks and possible complications. Consent form signed. Proceed with repeat and bilateral salpingectomy
[2024-05-31 02:25] LABS: Basophils # 0.1 K/mm3 (0-0.2); Basophils % 0.7 % (0.1-2.0); Eosinophils # 0.2 K/mm3 (0.0-0.4); Eosinophils % 2.5 % (0.1-12.0); Hematocrit 28.1 % (37.0-47.0); Hemoglobin 9.5 g/dL (12.2-16.2); Lymphocytes % 20.8 % (10-50); Mean Corpuscular Hemoglobin 30.2 pg (27.0-31.2); Mean Corpuscular Volume 89.1 fl (81-99); Mean Platelet Volume 9.4 fl (7.4-10.4); Monocytes # 0.6 K/mm3 (0.1-1.0); Monocytes % 6.6 % (1.7-9.3); Neutrophils # 6.7 K/mm3 (1.8-7.8); Neutrophils % 69.5 % (37.0-80.0); Platelet Count 310 K/mm3 (142-424); Red Blood Count 3.16 M/mm3 (4.20-5.40); Red Cell Distribution Width 15.4 % (11.5-17.5); White Blood Count 9.7 K/mm3 (4.8-10.8)
[2024-05-31 02:36] LABS: Chloride 110 mmol/L (98-107); Potassium 3.9 mmoL/L (3.5-5.1); Sodium 134 mmol/L (136-145)
[2024-05-31 02:39] LABS: Anion Gap 6.9 mEq/L (5-15); Blood Urea Nitrogen 11 mg/dl (7-17); Carbon Dioxide 21 mmol/L (22.0-30.0); Creatinine Clearance Estimated 225 mL/min (50-200); Estimated Glomerular Filt Rate 194 ml/min (>60); GFR (African American) 235 ML/MIN (>60)
--- NOTE | 2024-05-31 02:39 | P.PNANES_ITS ---
[facility] Disclaimer: The information contained in this section may have been updated after the patient was seen, as this information can be updated by other users. Medical History 38 weeks gestation of Spontaneous onset of labor after 37 but before 39 completed weeks gestation with delivery by planned section Spontaneous rupture of membranes Dizziness Dyspnea Pruritus of Request for sterilization Asthma affecting , antepartum Cystic fibrosis gene carrier Marijuana use during Surgical History History of Family History Other Diabetes Heart attack Hyperlipidemia Stroke Thyroid disorder Social History Smoking Status: Never smoker alcohol intake: never substance use type: denies use current occupational status: employed Travel in the last 8 weeks: None [facility] Anesthesia Checklist Patient Identification Patient Identification: Arm Band and Verbal (Name & ) Structural Data Admitted From: Inpatient Planned Operative Procedure/s: Repeat C/section Consent for Planned Operative Procedure(s) Verified: Yes Verified Documents: Surgical Consent and History and Physical NPO Status Verified Time NPO: 00:00 Chart Verification Results Verified: CBC Additional verifications Patient : Yes Anesthesia Reactions: No Airway Assessment Mallampati Score:: Class II C-Spine Mobility Assessed: Yes TMJ Mobility Assessed: Yes Dentition: Good Dentition Neurological Assessment Level of Consciousness: Awake Hx Seizures: No Numbness or tingling in extremities: No Anesthesia Plan Anesthesia Risk discussed: Yes Anesthesia Plan: Verified ASA Class: II Anesthesia Type: Spinal
[2024-05-31 02:40] LABS: Calcium 8.9 mg/dl (8.4-10.2); Glucose 85 mg/dl (74-100)
--- NOTE | 2024-05-31 04:11 | P.OP_ITS ---
Date of procedure: 05/31/24 Pre-op Diagnosis:: 1. IUP at 38w0d 2. Spontaneous rupture of membranes 3. Onset of labor 4. History of x 1 5. Asthma complicating 6. Marijuana use in 7. Desires permanent sterilization Post-op Diagnosis:: 1. IUP at 38w0d 2. Spontaneous rupture of membranes 3. Onset of labor 4. History of x 1 5. Asthma complicating 6. Marijuana use in 7. Desires permanent sterilization Procedure performed:: Repeat low transverse section, bilateral salpingectomy Surgeon:: Madyson Oliva DO Station Engineer Main Line(s):: Caleb Farris MD MEN'S BASKETBALL COACH:: Sasha Esparza Anesthesia: spinal Estimated blood loss (mL): 500 Clinical Note:: Ms Jeana Iyer is a 24 yo at 38w0d who presents to [facility] L&D with complaint of leakage of fluid after voiding at midnight. It happend again about 30 minutes later. She admits she soaked through two pairs of underwear. Contraction started on her way to the hospital. Baby is active. Upon evaluation in L&D Amnisure positive and cervical exam was 3/60/-3. She has had good care. complicated by asthma, marijuana use and history of c- section x 1. She is complete with childbearing and desire permanent sterilization. Operative findings:: 1. Live male baby, Rock, weighing 6 lb 7 oz, APGARs 7 (1 min), 8 (5 min) 2. Nuchal cord x 2 3. Grossly normal appearing uterus, bilateral fallopian tubes and ovaries Operative note:: The risks, benefits and alternatives of the procedure were reviewed with the pat ient. Informed consent was obtained. Patient was taken to the operating room where spinal anesthesia was placed. The patient received 2 grams of Ancef preoperatively. Patient was placed in dorsal supine position with a leftward tilt. SCDs in place. Bynum catheter had been placed and was draining clear urine prior to the start of the procedure. heart tones were obtained. Vagina was prepped with Betadine swabs x 3. Patient was then prepped and draped in normal sterile fashion. Allis clamp test was performed to ensure adequate anesthesia. A Pfannenstiel skin incision was made 2 cm above pubic symphysis along prior Pfannenstiel incision scar. This was carried through to underlying layer of fascia. Fascia was incised in midline, extended laterally with Ramirez scissors. Superior aspect of fascial incision was grasped with two Romulo clamps, elevated up, and rectus muscle dissected off bluntly and sharply with Ramirez scissors. Inferior aspect of fascial incision was grasped with two Romulo clamps, elevated up, and rectus muscle dissected off bluntly and sharply with Ramirez scissors. The rectus muscle was then in the midline and the peritoneum was entered bluntly with a digit. Peritoneal incision was then extended superiorly and inferiorly with good visualization of the bladder. Richie retractor was inserted. The lower uterine segment was incised in a transverse fashion. Clear amniotic fluid was noted. Head was delivered without difficulty. Nuchal x 2 was easily reduced. Remainder of body was delivered without difficulty. Mouth and nares were bulb suctioned. Spontaneous cry was noted. Delayed cord clamping was performed for 60 seconds. The umbilical cord was clamped and cut. The was handed to awaiting pediatric staff in stable condition. Dr. Hilario was present. Apgars were 7(1 min), 8(5 min). Cord blood was obtained. Gentle traction on the umbilical cord and uterine fundal massage delivered the placenta. Placenta was intact. Uterus was cleared of all clots and debris with a moist laparotomy sponge. Corners of the uterine incision were grasped with Allis clamps. The uterine incision was reapproximated with # 1 Vicryl suture in a running, locked stitch. Second layer of the same stitch was used to imbricate the incision. Hemostasis was noted. Posterior cul-de-sac was cleaned with moist laparotomy sponge. Gutters cleared of all clots and debris with a moist laparotomy sponge. Attention was then turned to the left fallopian tube, which was grasped with a Bluebell clamp. Enseal device was used to clamp, ligate and transect the right mesosalpinx and fallopian tube at uterine cornua,. Same procedure was carried out on the contralateral side. Specimens will be sent to pathology for review. Reinspection of the lower uterine segment demonstrated small amount of oozing. Surgicel powder was applied over uterine incision. Hemostasis was noted. At this point all instruments and sponges were removed from the pelvis.? The peritoneum was grasped with Amelia clamps x 3. The peritoneum was reapproximated with 0 Vicryl suture in a running stitch. The corners of the fascia were grasped with Romulo clamps, and the fascia was reapproximated with two # 1 Vicryl suture overlapped to the right of midline. Subcutaneous tissue was irrigated with clear return of fluids. The subcutaneous tissue was reapproximated with 3-0 Vicryl. The skin was reapproximated with Insorb vernon. Steri strips and Telfa placed over closed Pfannenstiel skin incision. At the end of the procedure, the uterus was firm with minimal vaginal bleeding. Patient tolerated the procedure well. Instrument, sponges and needle counts were correct x 2. Mom and baby were transported to recovery room in stable condition. Condition: stable Disposition: floor Specimens:: 1. Cord blood 2. Bilateral fallopian tubes Complications:: None
--- NOTE | 2024-05-31 04:20 | EXP.ANES.I ---
[facility] Anesthesia Record Part I Anesthesia Record I Intake, IV Amount: 1,000 Hydration: Adequate Estimated blood loss (mL): 500 Urine output (mL): 0 Blood Pressure: 123/77 SaO2: 100 Pulse Rate: 98 Airway Patency: Patent Respiratory Rate: 14 Temperature: 97.9 F Patient is:: Awake Stable to PACU at:: 04:15
[2024-05-31] MEDS: OXYTOCIN/RINGERS LACTATE 30 UNITS/500 ML BAG 40 UNITS IV (04:59)
[2024-05-31] MEDS: KETOROLAC 30MG/ML VIAL 30 MG IV ×4 (04:59→21:43)
[2024-05-31] MEDS: LACTATED RINGERS 1000ML 1,000 ML 125 ML IV (04:59)
[2024-05-31] MEDS: HYDROMORPHONE 2MG/ML SYRINGE 2 MG IV (05:00)
--- NOTE | 2024-05-31 08:34 | P.CONPHA_ITS ---
Pharmacy Intervention Comments: MEDICATION RECONCILIATION COMPLETED ON PATIENT USING EXTERNAL FILL HISTORY FROM PHARMACY AND LIST FROM FAN MAIL EDITOR OFFICE. -JOSEF KINGD
--- NOTE | 2024-05-31 08:34 | HMH.PHAINT1 ---
Pharmacy Intervention Comments: MEDICATION RECONCILIATION COMPLETED ON PATIENT USING EXTERNAL FILL HISTORY FROM PHARMACY AND LIST FROM STRUCTURAL ARCHITECT OFFICE. -JOSEF KINGD
[2024-05-31] MEDS: ACETAMINOPHEN 500MG TAB 1000 MG PO ×3 (09:42→21:43)
[2024-05-31] MEDS: HYDROMORPHONE 2MG/ML SYRINGE 1 MG IV (09:43)
[2024-05-31] MEDS: CEFAZOLIN SODIUM 2 GM in 0.9 % SODIUM CHLORIDE 100 ML IV ×2 (10:59→20:11)
[2024-05-31] MEDS: PRENATAL MULTIVITAMIN W/IRON 1 EACH PO (16:06)
[2024-06-01] MEDS: OXYCODONE 5MG IMMEDIATE RELEASE TABLET 5 MG PO ×4 (04:22→22:21)
[2024-06-01] MEDS: ACETAMINOPHEN 500MG TAB 1000 MG PO ×4 (04:22→22:20)
[2024-06-01] MEDS: IBUPROFEN 400 MG TABLET 800 MG PO ×3 (04:22→20:47)
[2024-06-01] MEDS: IRON SUCROSE COMPLEX 200 MG in 0.9 % SODIUM CHLORIDE 100 ML 220 MG IV (06:34)
[2024-06-01 06:40] LABS: Basophils # 0.1 K/mm3 (0-0.2); Basophils % 0.6 % (0.1-2.0); Eosinophils # 0.1 K/mm3 (0.0-0.4); Eosinophils % 0.9 % (0.1-12.0); Hematocrit 24.4 % (37.0-47.0); Hemoglobin 7.9 g/dL (12.2-16.2); Lymphocytes # 1.6 K/mm3 (0.7-4.5); Lymphocytes % 14.9 % (10-50); Mean Corpuscular HGB Conc 32.3 g/dL (31.8-35.4); Mean Corpuscular Hemoglobin 29.1 pg (27.0-31.2); Mean Corpuscular Volume 89.9 fl (81-99); Mean Platelet Volume 9.6 fl (7.4-10.4); Monocytes # 0.6 K/mm3 (0.1-1.0); Monocytes % 5.4 % (1.7-9.3); Neutrophils # 8.5 K/mm3 (1.8-7.8); Neutrophils % 78.2 % (37.0-80.0); Platelet Count 299 K/mm3 (142-424); Red Blood Count 2.71 M/mm3 (4.20-5.40); Red Cell Distribution Width 15.4 % (11.5-17.5); White Blood Count 10.8 K/mm3 (4.8-10.8)
[2024-06-01 08:10] VITALS: BP 119/72; PULSE 96; RESP 18; TEMP 36.8; O2SAT 98
[2024-06-01 11:50] LABS: Rapid Plasma Reagin Ab Titer Non Reactive titer (NonRea<1:1)
--- NOTE | 2024-06-01 14:42 | P.PN_ITS ---
Subjective *Date: 06/01/24 *Time: 14:42 Interval history: POD#1 s/p RLTCS with BS Feeling well. Pain controlled. Formula feeding. Lochia is appropriate. Voiding without difficulty and passing flatus. Tolerating regular diet. Denies fever/chills, chest pain and shortness of breath. No headaches, vision changes, lightheadedness/dizziness. No lower extremity swelling. Ambulating well ad alison. Medical Exam Vital signs and Labs for Last 24 Hours: Vital Signs Temp Pulse Resp BP Pulse Ox O2 Del Method 06/01/24 08:10 98.2 F 96 H 18 119/72 98 Room Air Laboratory Results - last 24 hr 05/31/24 02:06: RPR Titer Non reactive 06/01/24 06:28: WBC 10.8, RBC 2.71 L, Hgb 7.9 L, Hct 24.4 L, MCV 89.9, MCH 29.1, MCHC 32.3, RDW 15.4, Plt Count 299, MPV 9.6, Neut % (Auto) 78.2, Lymph % (Auto) 14.9, [place] % (Auto) 5.4, Eos % (Auto) 0.9, Baso % (Auto) 0.6, Neut # (Auto) 8.5 H, Lymph # (Auto) 1.6, [place] # (Auto) 0.6, Eos # (Auto) 0.1, Baso # (Auto) 0.1 I & O for Labs for Last 24 Hours: Intake & Output 05/29/24 05/30/24 05/31/24 06/01/24 23:59 23:59 23:59 23:59 Intake Total 1000 / 1000 Balance 1000 / 1000 Weight 145 lb 15.983 oz Head: Present atraumatic and normocephalic Neck: Present full ROM Respiratory: Present CTA bilaterally and normal respiratory effort Cardiac: Present Reg Rate and Rhythm GI: Present soft and normal bowel sounds; Absent tenderness Comments:: Uterine fundus firm and below umbilicus Rectal (female): Present deferred (female): Present deferred Extremities: Present full ROM and edema (+ bilateral lower extremity swelling) Neuro: Present alert, awake and moves all extremities Assessment and Plan *Assessment and plan (1) S/P : Status: Acute Category: Surgical Code(s): Z98.891 - History of uterine scar from previous surgery (2) Spontaneous onset of labor after 37 but before 39 completed weeks gestation with delivery by planned section: Status: Acute Category: Medical Code(s): O75.82 - Onset (spontaneous) of labor after 37 completed weeks of gestation but before 39 completed weeks gestation, with delivery by (planned) section (3) 38 weeks gestation of : Status: Acute Category: Medical Code(s): Z3A.38 - 38 weeks gestation of (4) Asthma affecting , antepartum: Status: Acute Category: Medical Code(s): O99.519 - Diseases of the respiratory system complicating , unspecified trimester; J45.909 - Unspecified asthma, uncomplicated (5) Marijuana use during : Status: Acute Category: Medical Code(s): O99.320 - Drug use complicating , unspecified trimester; F12.90 - Gabby abis use, unspecified, uncomplicated (6) Cystic fibrosis gene carrier: Problem Comment: [employer] carrier screen 12/04/23 demonstrated + carrier of CF; negative for Fragile X, SMA and DMD Status: Acute Category: Medical Code(s): Z14.1 - Cystic fibrosis carrier (7) History of : Status: Acute Category: Surgical Code(s): Z98.891 - History of uterine scar from previous surgery (8) Request for sterilization: Status: Acute Category: Medical Code(s): Z30.2 - Encounter for sterilization (9) Acute blood loss anemia: Status: Acute Category: Medical Code(s): D62 - Acute posthemorrhagic anemia Plan Continue routine care Encouraged increased ambulation Venofer 200 mg IV x 1 dose Plan d/c home tomorrow, POD # 2
[2024-06-01 15:34] VITALS: BP 127/73; PULSE 101; RESP 18; TEMP 36.4; O2SAT 99
[2024-06-01] MEDS: PRENATAL MULTIVITAMIN W/IRON 1 EACH PO (16:53)
[2024-06-01 20:44] VITALS: BP 136/84; PULSE 110; RESP 15; TEMP 36.8; O2SAT 98
[2024-06-02 04:26] VITALS: BP 113/77; PULSE 92; RESP 16; TEMP 36.8
[2024-06-02] MEDS: ACETAMINOPHEN 500MG TAB 1000 MG PO (04:28)
[2024-06-02] MEDS: IBUPROFEN 400 MG TABLET 800 MG PO (04:29)
--- NOTE | 2024-06-02 07:21 | P.DS_ITS ---
General Admission date:: 05/31/24 Discharge date: 06/02/24 HPI HPI HPI: POD # 2 s/p RLTCS with BS Feeling well. Pain controlled. Formula feeding. Lochia is light. Voiding without difficulty and passing flatus. Tolerating regular diet. Denies fever/chills, chest pain and shortness of breath. No headaches, vision changes, lightheadedness/dizziness. She admits to lower extremity swelling; no calf pain. Ambulating well ad alison. Hospital Course Hospital Course Hospital Course: Ms Jeana Iyer is a 24 yo at 38w0d who presented to [facility] L&D with complaint of leakage of fluid after voiding at midnight, 05/31/24. It happened again about 30 minutes later. She admitted she soaked through two pairs of underwear. Contractions started on her way to the hospital. Baby is active. Upon evaluation in L&D Amnisure positive and cervical exam was 3/60/-3. She has had good care. complicated by asthma, marijuana use and history of x 1. She is complete with childbearing and desire permanent sterilization. She underwent repeat with bilateral salpingectomy on 05/31/24. She d elivered a live male baby, Rock, weighing 6 lb 7 oz, APGARs 7 (1 min), 8 (5 min). EBL 500mL. POD # 1 Hgb was 7.9 (9.5 on admission). She was asymptomatic. She received Venofer 200 mg IV x 1 dose. She did well /postoperatively. Pain controlled. Formula feeding. Light lochia. Voiding without difficulty and passing flatus. Tolerating regular diet. Denies fever/chills, chest pain and shortness of breath. No headaches, dizziness/lightheadedness or vision changes. Vital signs stable, afebrile. Heart regular rate and rhythm. Lungs clear to auscultation. Abdomen soft, nontender. She had +3 bilateral lower extremity swelling, no calf tenderness to palpation. Ambulating well ad alison. Normal hospital course. She was discharged to home on POD # 2 with instructions to follow-up in the office in 2 weeks or sooner if needed. Exam Data for Last 24 hours Vital signs and Labs for Last 24 Hours: Temp Pulse Resp BP Pulse Ox O2 Del Method 98.3 F 92 H 16 113/77 98 Room Air 06/02/24 04:26 06/02/24 04:26 06/02/24 04:26 06/02/24 04:26 06/01/24 20:44 06/01/24 20:44 Laboratory Results - last 24 hr 05/31/24 02:06: RPR Titer Non reactive I & O for Last 24 hours: Intake & Output 05/30/24 05/31/24 06/01/24 06/02/24 23:59 23:59 23:59 23:59 Intake Total 1000 / 1000 Balance 1000 / 1000 Weight 145 lb 15.983 oz Constitutional Constitutional: no acute distress and cooperative *Routine HEENT Exam Head: Present normocephalic and atraumatic Eye: Absent conjunctivae pink ENT: Present mucous membranes moist *Routine Neck Exam Neck: Present full ROM *Routine Respiratory Exam Respiratory: Present CTA bilaterally and normal respiratory effort *Routine Cardiovascular Exam Cardiovascular: Present RRR *Routine Abdominal Exam Abdominal: Present soft and normoactive bowel sounds; Absent tenderness or distended Comments: Uterine fundus firm and below umbilicus. pfannenstiel incision clean/dry/intact with steri strips in place *Routine Rectal Exam Patient deferred: visual exam *Routine Exam Patient deferred: external exam *Routine Extremities Exam Extremities: Present edema (+3 bilateral lower extremity edema) and full ROM; Absent calf tenderness *Routine Neurological Exam Neurological: Present alert, moving all extremities and normal speech Routine Psychiatric Exam Psychiatric: Present normal affect and cooperative Results Data Completed and Pending Labs on day of discharge: Labs from last 24 hours 05/31/24 02:06 RPR Titer Non reactive DS: Diagnosis Discharge Diagnosis (1) S/P : Status: Acute Code(s): Z98.891 - History of uterine scar from previous surgery (2) Spontaneous onset of labor after 37 but before 39 completed weeks gestation with delivery by planned section: Status: Acute Code(s): O75.82 - Onset (spontaneous) of labor after 37 completed weeks of gestation but before 39 completed weeks gestation, with delivery by (planned) section (3) 38 weeks gestation of : Status: Acute Code(s): Z3A.38 - 38 weeks gestation of (4) Asthma affecting , antepartum: Status: Acute Code(s): O99.519 - Diseases of the respiratory system complicating , unspecified trimester; J45.909 - Unspecified asthma, uncomplicated (5) Marijuana use during : Status: Acute Code(s): O99.320 - Drug use complicating , unspecified trimester; F12.90 - Cannabis use, unspecified, uncomplicated (6) Cystic fibrosis gene carrier: Status: Acute Code(s): Z14.1 - Cystic fibrosis carrier Problem details: [facility] carrier screen 12/04/23 demonstrated + carrier of CF; negative for Fragile X, SMA and DMD (7) History of : Status: Acute Code(s): Z98.891 - History of uterine scar from previous surgery (8) Request for sterilization: Status: Acute Code(s): Z30.2 - Encounter for sterilization (9) Acute blood loss anemia: Status: Acute Code(s): D62 - Acute posthemorrhagic anemia Meds Home Medications and Allergies Home Medications ?Medication ?Instructions ?Recorded ?Confirmed ?Type vits no.126-ferrous fum 1 tab PO DAILY 11/13/23 05/31/24 History 28 mg iron-folic acid 800 mcg tablet (Classic ) fluticasone propionate 44 1 puff inhalation BID 03/10/24 05/31/24 History mcg/actuation HFA aerosol inhaler fluticasone propionate 50 1 spray intranasal DAILY 03/10/24 05/31/24 History mcg/actuation nasal spray,suspension epinephrine 0.3 mg/0.3 mL 0.3 mg IM NEEDED PRN Allergic 03/24/24 05/31/24 History injection, auto-injector Reaction albuterol sulfate 90 mcg/actuation 4 inh inhalation Q4HP PRN 04/26/24 05/31/24 History aerosol inhaler shortness of breath or wheezing ibuprofen 800 mg tablet 800 mg PO Q8H PRN pain #20 tabs 06/02/24 Rx oxycodone 5 mg tablet 5 mg PO Q4HP PRN Moderate Pain 06/02/24 Rx (4-6) #20 tabs New Prescriptions to Start Prescriptions: ibuprofen Canan,Madyson oxycodone Canan,Madyson Allergies Allergy/AdvReac Type Severity Reaction Status Date / Time bee pollen Allergy Severe Anaphylaxis Verified 05/29/24 15:16 Discharge Plan Disposition Patient Disposition: Home, Self-Care Condition: Good Discharge Order Discharge Orders: Discharge Order (Routine); Ordered 06/02/24 Ordered By: Madyson Oliva Follow up Plan Follow up with: Madyson Oliva DO [Staff Physician] - 06/12/24 2:30 pm Prescriptions/Medication Reconciliation: New oxycodone 5 mg Tablet 5 mg PO Q4HP PRN (Reason: Moderate Pain (4-6)) Qty: 20 0RF ibuprofen 800 mg tablet 800 mg PO Q8H PRN (Reason: pain) Qty: 20 0RF Continued fluticasone propionate 50 mcg/actuation spray,suspension 1 spray intranasal DAILY Patient Comments: SPRAY 1 SPRAY BY NASAL ROUTE EVERY DAY fluticasone propionate 44 mcg/actuation HFA aerosol inhaler 1 puff inhalation BID Patient Comments: INHALE 1 PUFF INTO THE LUNGS 2 TIMES DAILY. RINSE MOUTH AFTER USE. epinephrine 0.3 mg/0.3 mL auto-injector 0.3 mg IM NEEDED PRN (Reason: Allergic Reaction) Patient Comments: USE DIRECTED FOR ANAPHYLAXIS Classic 28 mg iron- 800 mcg tablet 1 tab PO DAILY albuterol sulfate 90 mcg/actuation HFA aerosol inhaler 4 inh inhalation Q4HP PRN (Reason: shortness of breath or wheezing) Problem Reconciliation Problems Reviewed?: Yes Patient Discharge Instructions ACTIVITY: Limited activity DIET: continue same diet and regular diet Additional Instructions: Discharge: 1. Take 800 mg Ibuprofen every 8 hours as needed for pain. You can also take 500-1000 mg of Tylenol in between doses, every 6-8 hours. If pain persists you can take Oxycodone 5 mg, 1 tablet every 4-6 hours or more as needed. 2. Nothing in the vagina for 6 weeks - no intercourse, douching or tampons. No tub baths/hot tubs or swimming pools - Drink plenty of fluids. - No strenuous activity or driving until released by your doctor. - Don't lift anything heavier than your . 3. Reasons to return to L&D or call On-Call doctor - fever (greater than 100.4) - heavy vaginal bleeding (soaking through 1 pad in less than 2 hours) - vaginal discharge (malodorous and/or purulent) - severe headaches not resolved by medication or rest and leg tenderness/edema 4. depression/blues - Normal to feel anxious/overwhelmed for first 2 weeks - Talk to your doctor if: severe anxiety, trouble bonding with baby, withdrawing from other family members, thoughts of harming yourself or others Patient Instructions: Pre-eclampsia, Depression, Hemorrhage, DI for , [facility] Post Discharge Instructions Print Language: Jordanian Providers Primary Care Provider: Nathaniel Glass Admit Provider: Madyson Oliva Attending Provider: Madyson Oliva
--- NOTE | 2024-06-02 07:42 | P.PNANES_ITS ---
[facility] Anesthesia Record Part II Anesthesia Record Part II Discharge Time: 04:45 Destination: Obstetric PACU nurse assessment reviewed?: Yes Patient Condition:: Good Anesthesia Complications:: None Swallowing reflex intact?: Yes Airway Patency: Patent Cyanosis?: No Blood Pressure: 129/79 SaO2: 100 Respiratory Rate: 14 Pulse Rate: 87 Temperature: 97.9 F Mental Status: Alert & Oriented Pain level:: 4 Nausea and/or vomitting:: None Intake, IV Amount: 0 Hydration: Adequate
[2024-06-02 07:43] VITALS: BP 129/79; PULSE 87; RESP 14; TEMP 36.6; O2SAT 100
== END 2024-06-02 14:00 | disposition home or self-care (01) | DRG 784 ==
LOC: OBOUT 02:07 → OB 02:07
PROVIDERS: Admitting Provider Obstetrics & Gynecology; PCP Pediatrics; Visit Provider Obstetrics & Gynecology
PROC: 0UL70ZZ Occlusion of Bilateral Fallopian Tubes, Open Approach (ICD-10-PCS; CPT 59514; principal; 2024-05-31 03:00)
DX: O34.211 Maternal care for low transverse scar from previous cesarean delivery (principal); D62 Acute posthemorrhagic anemia; O99.324 Drug use complicating childbirth; Z3A.38 38 weeks gestation of pregnancy; Z37.0 Single live birth; Z30.2 Encounter for sterilization; O99.52 Diseases of the respiratory system complicating childbirth; O90.81 Anemia of the puerperium; O69.81X0 Labor and delivery complicated by cord around neck, without compression, not applicable or unspecified
CPT/HCPCS: 59514; 58700; 59025; 80048; 80307; 81001; 84112; 85025; 86593; 86850; 87086; C9290; J1170; J1756; J1885; J2250; J2405; J7120

== ENCOUNTER 2025-03-17 18:10 | Emergency (ER) | payer OTHER, MEDICAID, SELFPAY ==
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
--- NOTE | 2025-03-17 18:15 | ECG_ITS ---
APPROVED REPORT Exam: Resting ECG HR:68 bpm ECG Measurements Heart Rate 68 AXES ID 138 P 62 QRSd 99 QRS 63 QT 374 T 45 QTc 392 Conclusion SINUS RHYTHM WITH MARKED SINUS ARRHYTHMIA BORDERLINE ECG Electronically signed by : MEGHAN RAMOS, 03/17/2025 20:50:35
[2025-03-17 18:19] VITALS: BP 126/92; PULSE 87; RESP 18; O2SAT 95
[2025-03-17 18:28] LABS: Basophils # 0.1 K/mm3 (0-0.2); Basophils % 0.9 % (0.1-2.0); Eosinophils # 0.7 Kmm3 (0.0-0.4); Eosinophils % 9.4 % (0.1-12.0); Hematocrit 36.3 % (37.0-47.0); Immature Granulocytes # 0.02 10^3uL; Immature Granulocytes % 0.3 %; Lymphocytes # 2.7 K/mm3 (0.7-4.5); Lymphocytes % 34.1 % (10-50); Mean Corpuscular HGB Conc 33.1 g/dL (31.8-35.4); Mean Corpuscular Hemoglobin 29.1 pg (27.0-31.2); Mean Corpuscular Volume 87.9 fl (81-99); Mean Platelet Volume 10.3 fl (7.4-10.4); Monocytes # 0.5 K/mm3 (0.1-1.0); Monocytes % 6.6 % (1.7-9.3); Neutrophils # 3.8 K/mm3 (1.8-7.8); Neutrophils % 48.7 % (37.0-80.0); Nucleated Red Blood Cells # 0 10^3/uL; Nucleated Red Blood Cells % 0 %; Platelet Count 329 K/mm3 (142-424); Red Blood Count 4.13 M/mm3 (4.20-5.40); Red Cell Distribution Width-SD 41.6 fL; White Blood Count 7.8 K/mm3 (4.8-10.8)
--- NOTE | 2025-03-17 18:30 | PC.NURSE ---
pt to scan via stretcher
[2025-03-17 18:31] VITALS: BP 122/82; PULSE 90; RESP 29; TEMP 36.8; O2SAT 97
[2025-03-17] MEDS: 0.9 % SODIUM CHLORIDE 50 ML VIAL IV (18:31)
[2025-03-17] MEDS: SODIUM CHLORIDE 0.9% 10ML SYR (RAD ONLY) 10 ML IV (18:32)
[2025-03-17] MEDS: IOPAMIDOL-370 (76%);100ML BOTTLE 80 ML IV (18:32)
[2025-03-17 18:37] VITALS: BP 142/88; PULSE 90; RESP 29; TEMP 36.8; O2SAT 97; BMI 21.6
[2025-03-17 18:37] LABS: Albumin Level 4.4 g/dl (3.5-5.0); Chloride 111 mmol/L (98-107); Potassium 3.6 mmoL/L (3.5-5.1); Sodium 137 mmol/L (136-145)
[2025-03-17 18:40] LABS: Alanine Aminotransferase 20 U/L (12-78); Albumin/Globulin Ratio 1.8 (1.1-1.8); Alkaline Phosphatase 59 U/L (38-126); Anion Gap 8.6 mEq/L (5-15); Aspartate Amino Transferase 21 U/L (14-36); Bilirubin,Total 1.5 mg/dl (0.2-1.3); Blood Urea Nitrogen 13 mg/dl (7-17); Calcium 8.6 mg/dl (8.4-10.2); Carbon Dioxide 21 mmol/L (22.0-30.0); Creatinine Clearance Estimated 123 mL/min (50-200); Estimated Glomerular Filt Rate 150 ml/min (>60); GFR (African American) 182 ML/MIN (>60); Globulin 2.5 g/dL (1.3-3.2); Glucose 101 mg/dl (74-100); Total Protein,Serum 6.9 g/dl (6.3-8.2)
--- NOTE | 2025-03-17 18:41 | PC.NURSE ---
pt back to room
[2025-03-17] MEDS: OXYCODONE 5MG IMMEDIATE RELEASE TABLET 5 MG PO (18:53)
[2025-03-17] MEDS: ACETAMINOPHEN 500MG TAB 1000 MG PO (18:53)
[2025-03-17] MEDS: 0.9 % SODIUM CHLORIDE 1000ML 1,000 ML 999 ML IV (18:53)
[2025-03-17] MEDS: DEXAMETHASONE 4MG/ML 5ML MDV 10 MG IV (18:53)
[2025-03-17 19:01] VITALS: BP 99/66; PULSE 65; RESP 26; O2SAT 99
--- NOTE | 2025-03-17 19:28 | PC.NURSE ---
rounded on pt at this time. pt voices no needs. call light in reach. family at bedside.
[2025-03-17 19:51] LABS: HIV Combo NEGATIVE (Negative)
[2025-03-17 19:52] LABS: Microscopic, Urine URINE MICROSCOPIC (MICROSCOPIC)
[2025-03-17 19:54] LABS: Appearance,Urine CLEAR (Clear); Bilirubin,Urine Negative (Negative); Blood, Urine Negative (Negative); Color,Urine YELLOW (Yellow); Glucose,Urine (UA) Negative (Negative); Ketones,Urine Negative (Negative); Leukocyte Esterase,Urine Negative (Negative); Nitrate,Urine Negative (Negative); PH,Urine 6.5 (5.0-8.5); Protein,Urine Negative (Negative); Urobilinogen,Urine 0.2 EU/dl (0.2)
[2025-03-17 20:00] LABS: Hepatitis C Ab Qual. W/ RFX NEGATIVE (Negative)
[2025-03-17 20:13] LABS: Bacteria,Urine Trace /lpf; Mucus,Urine 1+ /lpf
[2025-03-17] MEDS: ONDANSETRON 4MG/2ML VIAL 4 MG IV (20:49)
--- NOTE | 2025-03-17 20:54 | PC.NURSE ---
pt nauseous and dry heaving at this time. MD Alas notified. 4mg zofran ordered and administered.
[2025-03-17 21:04] LABS: Urine Pregnancy, HCG Qual. Negative (Negative)
[2025-03-17 21:29] VITALS: BP 105/66; PULSE 72; RESP 16; TEMP 36.6; O2SAT 98
[2025-03-18 14:34] LABS: Free T4 (Free Thyroxine) 1.22 ng/dl (0.78-2.19)
[2025-03-18 14:49] LABS: Thyroid Stimulating Hormone 1.79 uIU/mL (0.465-4.68)
== END 2025-03-17 21:32 | disposition home or self-care (01) ==
PROVIDERS: Nurse Practitioner Family; Physician Assistant; Emergency Provider Emergency Medicine
DX: M54.9 Dorsalgia, unspecified (principal); V49.40XA Driver injured in collision with unspecified motor vehicles in traffic accident, initial encounter; Y92.410 Unspecified street and highway as the place of occurrence of the external cause
CPT/HCPCS: 70450; 71275; 72125; 74174; 80053; 81001; 81025; 84439; 84443; 85025; 86803; 87389; 93005; 96361; 96374; 96375; 99285; J1100; J2405; J7030; Q9967

== ENCOUNTER 2025-07-26 14:29 | Emergency (ER) | payer OTHER, SELFPAY ==
[2025-07-26] VITALS (7 sets, daily range): BP systolic 94–140; BP diastolic 56–91; PULSE 46–91; RESP 16–20; TEMP 36.6–36.8; O2SAT 98–100; BMI 21.6
--- OUTSIDE RECORDS SUMMARY | 2025-07-26 14:39 | XMS_ITS | Encounter Summary ---
Author Organization [place] [address] Care Team Providers Care Janitorial Maintenance Worker Name Role Phone Nathaniel Glass MD Primary Care Provider [phone] Encounter Details Date Type Department Care Team (Late st Contact Info) Description 03/22/2025 Results Follow-Up [facility] [address] [place] [id number] Janny Jacobson, BULK LOADER [address] [place] [id number] URINE CULTURE (NO STAIN), US THYROID, THYROID STIMULATING HORMONE, T4, FREE (THYROXINE) Social History Tobacco Use Types Packs/Day Years Used Date Smoking Tobacco: Never Smokeless Tobacco: Never Alcohol Use Standard Drinks/Week Comments No 0 (1 standard drink = 0.6 oz pur e alcohol) PHQ-2 Answer Date Recorded PHQ-2 Total Score 0 10/15/2024 Sexually Active Control Partners Comments Yes Condom Comments No Sex and Gender Information Value Date Recorded Sex Assigned at Not on file Legal Sex Female 8:37 PM EDT Gender Identity Not on file Sexual Orientation Not on file documented as of this encounter Functional Status * Is the person deaf or does he/she have serious difficulty hearing? Answer Date of Assessment Author No 12/16/2019 3:16 PM Lora Soto CCMA * Is the person blind or does he/she have serious difficulty seeing even when wearing glasses? Answer Date of Assessment Author No 12/16/2019 3:16 PM Lora Soto, BRENDA * Does this person have serious difficulty walking or climbing stairs? Answer Date of Assessment Author No 12/16/2019 3:16 PM Lora Soto, GAELA * Does this person have difficulty dressing or bathing? Answer Date of Assessment Author No 12/16/2019 3:16 PM Lora Soto, BRENDA * Because of a physical, mental or emotional condition, does this person have difficulty doing errands alone such as visiting a doctor's office or shopping? Answer Date of Assessment Author No 12/16/2019 3:16 PM Lora Soto CCMA documented as of this encounter Mental Status * Because of a physical, mental or emotional condition, does this person have serious difficulty concentrating, remembering or making decisions? Answer Entry Date Author No 12/16/2019 3:16 PM Lora Soto CCMA documented in this encounter Plan of Treatment Not on file documented as of this encounter Goals Goal Patient Goal Type Associated Problems Recent Progress Patient-Stated? Author Maintain a healthy diet, exercise regularly and maintain an ideal body weight General No Jayla Denton, RAMANA documented as of this encounter Visit Diagnoses Not on filedocumented in this encounter Care Teams Janitorial Maintenance Worker Relationship Specialty Start Date End Date Nathaniel Glass MD [address] [place], [place] [address] PCP - General 11/16/09 documented as of this encounter
--- OUTSIDE RECORDS SUMMARY | 2025-07-26 14:39 | XMS_ITS | Clinical Summary ---
Author Organization [facility] Address [address] [place] [id number] Care Team Providers Care Winding Machine Operator Name Role Phone Nathaniel Glass M.D. Primary Care Provider [phone] Source Comments [facility] is fully rolled out with thefollowing exceptions:General Clinical Research [facility] Allergies Active Allergy Reactions Criticality Noted Date Comments Bee Venom 04/28/2012 Medications ibuprofen (MOTRIN) 200 MG tablet Active EPINEPHrine (EPIPEN) 0.3 MG/0.3ML auto-injector 0.3 mL (0.3 mg total) by Intramuscular route as directed for anaphylaxis. 2 Device 0 04/28/20 12 Active diphenhydrAMINE (BENADRYL) 12.5 MG/5ML elixir Take 10 mL (25 mg total) by mouth every 6 hours. 120 mL 0 04/28/20 12 Active polyethylene glycol 3350 (MIRALAX) powder Take 17 gm by mouth 1 time a day. Active doxazosin (CARDURA) 1 MG tabletIndication s:Urge urinary incontinence TAKE 1 TABLET BY MOUTH ONCE DAILY. 30 Tab 1 07/07/20 14 Active Active Problems Problem Noted Date Diagnosed Date Voiding dysfunction 12/09/2013 Urge urinary incontinence 12/09/2013 Chronic constipation 12/09/2013 Family History Medical History Relation Name Comments Heart Problems Maternal Grandfather High Blood Pressure Maternal Grandfather Gastrointestinal Disease Maternal Grandmother Crohn's Disease Heart Problems Maternal Grandmother Other Maternal Grandmother Litzy Mendoza; Dementia Heart Problems Maternal Uncle Desmond Heart Attac ks Heart Problems Other Pat. Uncle River Heart Att ack Other Paternal Grandfather Alzheim er's Disease Relation Name Status Comments Maternal Grandfather Maternal Grandmother Maternal Uncle Desmond Alive Other Pat. Uncle [place] Alive Paternal Grandfather Paternal Grandmother Alive Social History Tobacco Use Types Packs/Day Years Used Date Smoking Tobacco: Never Comments Unknown Sex and Gender Information Value Date Recorded Sex Assigned at Not on file Legal Sex Female 5:38 AM EST Gender Identity Not on file Sexual Orientation Not on file Last Filed Vital Signs Vital Sign Reading Time Taken Comments Blood Pressure 115/67 01/15/2014 12:46 PM EDT Pulse 86 01/15/2014 12:46 PM EDT Temperature 36.7 C (98.1 F) 01/15/2014 12:46 PM EDT Respiratory Rate 18 04/28/2012 5:53 PM EDT Oxygen Saturation - - Inhaled Oxygen Concentration - - Weight 35.1 kg (77 lb 6.1 oz) 01/15/2014 12:46 P M EDT Height 143.7 cm (4' 8.58 ) 01/15/2014 12:46 PM E DT Body Mass Index 17 01/15/2014 12:46 PM EDT Plan of Treatment Health Maintenance Due Date Last Done Comments MMR IMMUNIZATION (1 of 1 - S tandard series) 2000 DTAP/Tdap/Td IMMUNIZATION (1 - Tdap) 2006 VARICELLA IMMUNIZATION (1 of 2 - 13+ 2-dose series) 2012 HPV IMMUNIZATION (1 - 3-dose series) 2014 HEPATITIS B IMMUNIZATION (1 of 3 - 19+ 3-dose series) 2018 AMB SEASONAL FLU VACCINE (#1) 07/06/2025 COVID-19 Vaccine (1 - 2023-2 5 season) 2025 HIB IMMUNIZATION Aged Out No longer e ligible based on patient's age to complete this topic IPV IMMUNIZATION Aged Out No longer e ligible based on patient's age to complete this topic MCV4 IMMUNIZATION Aged Out No longer eligible based on patient's age to complete this topic MENINGOCOCCAL B VACCINE Aged Out No l onger eligible based on patient's age to complete this topic PNEUMOCOCCAL IMMUNIZATION Aged Out No longer eligible based on patient's age to complete this topic Respiratory Syncytial Virus (RSV) <20mo Aged Out No longer eligible b ased on patient's age to complete this topic Insurance NICOLE [employer]ILKINS NON-TRADITIONAL Care Teams Winding Machine Operator Relationship Specialty Start Date End Date Nathaniel Glass M.D. [place] [id number] [place] [address] PCP - General External Family Practice 04/28/12
--- OUTSIDE RECORDS SUMMARY | 2025-07-26 14:39 | XMS_ITS | Clinical Summary ---
Author Organization [facility] Address [address] [place] [address] Phone Care Team Providers Care Audit Mgr Name Role Phone Nathaniel Glass MD Primary Care Provider [phone] Allergies Active Allergy Reactions Criticality Noted Date Comments Bee Pollen 04/28/2012 Medications fluticasone propionate (FLONASE) 50 mcg/actuation Nasl [place], SuspensionIndica tions:PND (post-nasal drip) 1 [place] by Nasal route daily. 1 Each 3 03/05/20 24 Active fluticasone propionate (FLOVENT) 44 mcg/actuation Inhl HFA Aerosol InhalerIndicatio ns:Mild persistent asthma without complication Inhale 1 Puff into the lungs 2 times daily. rinse mouth after use 1 Each 2 12/12/19 25 Active methocarbamoL (ROBAXIN) 750 mg Oral Tablet Take 750 mg by mouth 3 times daily. 03/17/20 25 Active ondansetron (ZOFRAN-ODT) 4 mg Oral Tablet, Rapid Dissolve Dissolve 4 mg by mouth every 6 hours. 03/17/20 25 Active EPINEPHrine (EPIPEN) 0.3 mg/0.3 mL Inj Auto-InjectorInd ications:Anaphyl axis, subsequent encounter 0.3 mL by Other route as needed for Anaphylaxis. Use as directed for anaphylaxis. 2 Each 05/27/20 25 Active albuterol (VENTOLIN HFA) 90 mcg/actuation Inhl HFA Aerosol InhalerIndicatio ns:Mild persistent asthma without complication INHALE 1 PUFF INTO THE LUNGS NEEDED FOR WHEEZING. 18 Each 07/03/20 25 Active albuterol (VENTOLIN HFA) 90 mcg/actuation Inhl HFA Aerosol InhalerIndicatio ns:Mild persistent asthma without complication INHALE 1 PUFF INTO THE LUNGS NEEDED FOR WHEEZING. 3 Each 03/25/20 25 025 Discontinued Active Problems Patient Care Coordination No te Formatting of this note migh t be different from the original. Care gap audit completed by Letitia Stauffer RN on 08/22/2023. Problem Noted Date Diagnosed Date Thyroid with heterogeneous e chotexture determined by ultrasound 03/18/2025 Mild persistent asthma without complication 04/06 Assessment & Plan (12/12/2024 8:09 AM EST): Orders: albuterol (PROVENTIL HFA;VENTOLIN HFA) 90 mcg/actuation Inhl HFA Aerosol Inhaler; Inhale 1 Puff into the lungs as needed for Wheezing. fluticasone propionate (FLOVENT) 44 mcg/actuation Inhl HFA Aerosol Inhaler; Inhale 1 Puff into the lungs 2 times daily. rinse mouth after use Resolved Problems Problem Noted Date Diagnosed Date Resolved Date Normal labor 11/29/2018 03/06/2019 delivery delivered 11/29/2018 03/06/2019 Maternal fever during labor 11/29/2018 03/06/2019 Chlamydia infection affecting 06/27/2018 03/06/2019 Overview (08/29/2018): Azithro rx - TESSA neg Supervision of other normal , antepartum 06/25/2018 03/06/2019 Overview (08/29/2018): L=9 week U/S PNL wnl Declined genetics Anatomy U/S wnl GCT ordered Encounters Date Type Department Care Team Description 07/03/2025 [facility]ill [facility] [address] [place] [phone] Kirti Smith, DO Medication Refill; Central Patient Navigator Outreach (med refill 30) 05/27/2025 Refill [facility] [place] [facility] [address] [place] [phone] Nathaniel Glass MD Medication Refill 05/26/2025 1:00 PM EDT Clinical Support [facility] [place] [place] [phone] Letitia Thomas Thyroid with heterogeneous echotexture determined by ultrasound 05/25/2025 8:43 AM EDT - 05/25/2025 11:59 PM EDT Hospital Encounter [place] [address] [place] [address] Janny Jacobson APRN Thyroid with heterogeneous echotexture determined by ultrasound Discharge Disposition: Home or Self Care 05/25/2025 Telephone [facility] [address] [place] [phone] Nathaniel Glass MD Appointment Needed (Labs) from Last 3 Months Immunizations Immunization Administration Dates Next Due Meningococcal Polysaccharide 06/02/2011 Tdap 06/02/2011 Varicella 06/02/2011 Surgical History Surgery Date Site/Laterality Comments SECTION 11/29/2018 Abdomen/N/A Primary section with a low transvere skin incision at 2101 and a low transverse uterine incision at 2105. ; Surgeon: Milagros Vallejo MD; Location: [facility]; Service: Gynecology Medical History Medical History Date Comments Depression Chlamydia Social History Tobacco Use Types Packs/Day Years Used Date Smoking Tobacco: Never Smokeless Tobacco: Never Tobacco Cessation:Counseling Given: Not Answered Alcohol Use Standard Drinks/Week Comments No 0 (1 standard drink = 0.6 oz pur e alcohol) PHQ-2 Answer Date Recorded PHQ-2 Total Score 0 10/15/2024 Sexually Active Control Partners Comments Yes Condom Comments No Sex and Gender Information Value Date Recorded Sex Assigned at Not on file Legal Sex Female 8:37 PM EDT Gender Identity Not on file Sexual Orientation Not on file Obstetrics History Para Term AB IAB SAB Ectopic Multiple Livin g Live Births 2 1 1 0 0 0 0 0 0 1 1 Date Outcome GA Total Labor Labor/2nd/3rd Weight Sex Type Anes PTL Aida A1 A5 Name Clin 019 Term 37w 4d 0h 01m 0h 01m 6 lb 9.8 oz (3 kg) M CSP Epidur al N Livin g 8 9 TELLY IYER IN BABY Vallejo, Milagros watts MD Delivery Location:[facility] ([facility]) Last Filed Vital Signs Vital Sign Reading Time Taken Comments Blood Pressure 104/62 03/18/2025 1:13 PM EDT Pulse 74 03/18/2025 1:13 PM EDT Temperature 36.3 C (97.4 F) 03/18/2025 1:13 PM EDT Respiratory Rate 20 03/18/2025 1:13 PM EDT Oxygen Saturation 99% 03/18/2025 1:13 PM EDT Inhaled Oxygen Concentration - - Weight 45.3 kg (99 lb 12.8 oz) 03/18/2025 1:13 P M EDT Height 144.8 cm (4' 9 ) 03/18/2025 1:13 PM EDT Body Mass Index 21.6 03/18/2025 1:13 PM EDT Plan of Treatment Health Maintenance Due Date Last Done Comments HPV (1 - 3-dose series) 2014 Annual Wellness Exam 08/08/2017 08/08/2016 Pneumococcal Vaccine 0-49 (1 of 2 - PCV) 2018 Cervical Cancer Screening 10/14/2023 Pap Smear 10/14/2023 10/14/2020 COVID-19 Vaccine ( season) 2025 Influenza Vaccine (#1) 2025 6 (Declined), 01/18/2016 (Postponed) DTaP/TDaP/Td (8 - Td or Tdap) 03/24/2034 03/24/2024, 10/14/2018, 06/02/2011, Additional history exists Hepatitis B Vaccine Completed 04/12/2000, 1999, 1999 Chlamydia Screening Discontinued 10/24/2023, 12/30/2020, 10/14/2020, Additional history exists Meningococcal B Vaccine Aged Out No l onger eligible based on patient's age to complete this topic Goals Goal Patient Goal Type Associated Problems Recent Progress Patient-Stated? Author Maintain a healthy diet, exercise regularly and maintain an ideal body weight General No Jayla Denton, RMA Procedures Procedure Name Priority Date/Time Associated Diagnosis Comments T4, FREE (THYROXINE) Routine 05/26/2025 1:02 PM EDT Thyroid with heterogeneous echotexture determined by ultrasound THYROID STIMULATING HORMONE Routine 05/26/2025 1:02 PM EDT Thyroid with heterogeneous echotexture determined by ultrasound US THYROID Routine 05/25/2025 9:26 AM EDT Thyroid with heterogeneous echotexture determined by ultrasound CHLAMYDIA/GC BY TMA STAT 10/24/2023 5 :20 AM EST FLOUR INSPECTOR CYTOLOGY REQUEST (PAP ONLY) Routine 10/14/2020 9:13 AM EST Encounter for gynecological examination with abnormal finding Screening for chlamydial disease from Last 3 Months or Most Recently Relevant to Health Maintenance Results * THYROID STIMULATING HORMONE (05/26/2025 1:02 PM EDT) TSH 0.801 0.270 - 4.200 mcIU/mL 05/26/2025 10:55 PM EDT PREFERRED [facility] Blood VENOUS BLOOD / Unknown Venipuncture / Unknown 05/26/2025 1:02 PM EDT 05/26/2025 1:02 PM EDT Narrative [facility] - 05/26/2025 10:55 PM EDT Ingestion of betsy doses of biotin (>5 mg/day) taken within 8 hours of drawing blood sample can interfere with this immunoassay test. us Janny Jacobson APRN CHEMISTRY ORDERABLES Catrina martinez Result [facility]REFERRED [facility] [address] [facility] , [place] [address] * T4, FREE (THYROXINE) (05/26/2025 1:02 PM EDT) Free T4 1.25 0.80 - 1.80 ng/dL 05/26/2025 10:55 PM EDT PREFERRED [facility] Blood VENOUS BLOOD / Unknown Venipuncture / Unknown 05/26/2025 1:02 PM EDT 05/26/2025 1:02 PM EDT Narrative [facility] - 05/26/2025 10:55 PM EDT Ingestion of betsy doses of biotin (>5 mg/day) taken within 8 hours of drawing blood sample can interfere with this immunoassay test. us Janny G Kavon FIRST LINE PRODUCTION SUPERVISOR CHEMISTRY ORDERABLES Catrina martinez Result [email or web address] [address] [facility] , [place] [address] * US THYROID (05/25/2025 9:26 AM EDT) Anatomical Region Laterality Modality Neck Ultrasound 05/25/2025 9:26 AM EDT Impressions 05/25/2025 10:11 AM EDT Diffusely homogeneous and prominent sized thyroid gland without discrete nodule. - Note: Radiology results need to be interpreted within a comprehensive clinical context. If you have questions about the radiology report, please contact the office of the ordering clinician. Narrative 05/25/2025 10:11 AM EDT THYROID SONOGRAPHY, 05/25/2025 9:26 AM CLINICAL HISTORY: Thyroid nodule(s). R93.89-Abnormal findings on diagnostic imaging of other specified body [id number]. COMPARISON: None. Attempts were made to find outside imaging which were unsuccessful. PROCEDURE COMMENTS: Sonographic evaluation of the thyroid gland per protocol. Images and technologist notes reviewed. METHODOLOGY: Up to 4 nodules with the highest scores are reported using the Thyroid Imaging Reporting and Data System (TI-RADS). This system promotes a common lexicon for thyroid nodule description, focusing on relevant imaging characteristics to allow risk stratification of individual nodules and makes recommendations for biopsy or sonographic follow-up based on the estimated risk profile. Caveat: Deviation from the below TI-RADS management recommendations may be appropriate based on individual patient variables and/or differing society criteria. Right lobe measures: 6.0 x 1.8 x 1.5 cm. Left lobe measures: 5.6 x 1.8 x 1.0 cm. RIGHT-side lymph nodes: No suspicious lymph nodes. LEFT-side lymph nodes: No suspicious lymph nodes. No measured thyroid nodules. Thyroid gland is diffusely homogeneous. No significant additional finding. Procedure Note Juan Manuel Ramirez MD - 05/25/2025 THYROID SONOGRAPHY, 05/25/2025 9:26 AM CLINICAL HISTORY: Thyroid nodule(s). R93.89-Abnormal findings ondiagnostic imaging of other specified body [id number]. COMPARISON: None. Attempts were made to find outside imaging which were unsuccessful. PROCEDURE COMMENTS: Sonographic evaluation of the thyroid gland perprotocol. Images and technologist notes reviewed. METHODOLOGY: Up to 4 nodules with the highest scores are reported usingthe Thyroid Imaging Reporting and Data System (TI-RADS). This system promotesa common lexicon for thyroid nodule description, focusing on relevantimaging characteristics to allow risk stratification of individual nodules andmakes recommendations for biopsy or sonographic follow-up based on the estimatedrisk profile. Caveat: Deviation from the below TI-RADS management recommendations maybe appropriate based on individual patient variables and/or differingsociety criteria. Right lobe measures: 6.0 x 1.8 x 1.5 cm. Left lobe measures: 5.6 x 1.8 x 1.0 cm. RIGHT-side lymph nodes: No suspicious lymph nodes. LEFT-side lymph nodes: No suspicious lymph nodes. No measured thyroid nodules. Thyroid gland is diffusely homogeneous. No significant additional finding. IMPRESSION: Diffusely homogeneous and prominent sized thyroid gland without discretenodule. - Note: Radiology results need to be interpreted within a comprehensiveclinical context. If you have questions about the radiology report, please contactthe office of the ordering clinician. us Janny Jacobson APRN G US ORDERABLES Final R esult * CHLAMYDIA/GC BY TMA (10/24/2023 5:20 AM EST) Chlamydia trachomatis Not Detected Not Detected 10/24/2023 11:36 AM EST [email or web address] Neisseria gonorrhoeae Not Detected Not Detected 10/24/2023 11:36 AM EST [email or web address] Swab SPECIMEN FROM UTERINE CERVIX / Unknown 10/24/2023 5:20 AM EST 10/24/2023 5:25 AM EST Narrative [facility]REFERR[facility] - 10/24/2023 11:36 AM EST Testing methodology is study assistant mediated amplification (TMA) using the Aptima Combo 2 assay from [employer]. A negative result does not completely rule out a Chlamydia trachomatis or Neisseria gonorrhoeae infection due to potential inhibitors or levels present below the limit of detection by this assay. Results are dependent on proper collection and transport of specimen. This test is indicated for medical purposes only and should not be used for legal or forensic purposes. The performance characteristics of this assay were validated by the testing laboratory. This assay is FDA cleared to test the following specimens: clinician-collected endocervical, vaginal, male urethral swab specimens, rectal swabs, and throat/pharyngeal swabs; patient collected vaginal specimens within a clinic setting; Thin Prep Specimens in PreservCyt Solution; and first-stream, unpreserved male and female urine specimens. Detailed methodology is available upon request. Ivan Stovall APRN MICROBIOLOGY - GENERAL ORDER CHAVA Final Result [email or web address] [address] [facility] , [place] [address] * FLOUR INSPECTOR CYTOLOGY REQUEST (PAP ONLY) (10/14/2020 9:13 AM EST) CASE REPORT Gynecologic Cytology Report Case: [id number] Authorizing Provider: Sarah Ritter ARNP Collected: 10/14/2020912 Ordering Location: [facility] Received: 10/14/2020912 First Screen: Luis France CT Specimen: LIQUID-BASED PAP - CERVICAL/ENDOCERV ICAL, Cervix, Endocervical 10/19/2020 3:05 PM EST [facility] PAP FINAL DIAGNOSIS Negative for intraepithelial lesion or malignancy 10/19/2020 3:05 PM [facility] at 1505 EST MICROSCOPIC DESCRIPTION Microscopic examination is performed and the findings corroborate the diagnosis 10/19/2020 3:05 PM [facility] PAP SMEAR ADEQUACY Satisfactory for evaluation 10/19/2020 3:05 PM EST [facility] PAP ORGANISMS NOTED Abundant bacteria present. 10/19/2020 3:05 PM EST [facility] ENDOCERVICAL T-ZONE Transformation zone present 10/19/2020 3:05 PM EST [facility] EMBEDDED IMAGES 0 3:05 PM [facility] PAP DISCLAIMER Note: this specimen was reprocessed due to excessive blood. The Pap Smear is a screening test that aids in the detection of cervical cancer and cancer precursors. Both false positive and false negative results can occur. The test should be used at regular intervals, and positive results should be confirmed before definitive therapy. Processed using the [employer] The[employer]Prep Rod Pointer Automated cytology screening device ([employer]). 10/19/2020 3:05 PM EST [facility] Thin Prep ENDOCERVICAL STRUCTURE / Unknown 10/14/2020 9:13 AM EST 10/14/2020 9:13 AM EST Sarah Ritter FIRST LINE PRODUCTION SUPERVISOR CYTOLOGY ORDERABLES Final Result Performing Organization Address City/State/[facility] Co de Phone Number [place] [phone] from Last 3 Months or Most Recently Relevant to Health Maintenance Insurance [employer] [facility] EXPRESS MDR [facility] Advance Directives For more information, please contact: [phone] * Full Code (Latest Code Status on File) Date Activated Date Inactivated Comments 11/29/2018 9:52 AM 12/02/2018 3:41 PM Care Teams Audit Mgr Relationship Specialty Start Date End Date Nathaniel Glass MD [address] [place] [address] PCP - General 11/16/09
--- OUTSIDE RECORDS SUMMARY | 2025-07-26 14:39 | XMS_ITS | Encounter Summary ---
Author Organization [place] [address] Care Team Providers Care Child Care Cook Name Role Phone Nathaniel Glass MD Primary Care Provider Reason for Visit * Reason Onset Date Comments Medication Refill Central Patient Navigator Outreach 07/03/2025 med refill 30 Encounter Details Date Type Department Care Team (Late st Contact Info) Description 07/03/2025 Refill [facility] [address] [place] [address] Kirti Smith, DO [address] [place], [place] [address] Medication Refill; Central Patient Navigator Outreach (med refill 30) Social History Tobacco Use Types Packs/Day Years [...] 12/16/2019 3:16 PM Lora Soto CCMA * Does this person have serious difficulty walking or climbing stairs? Answer Date of Assessment Author No 12/16/2019 3:16 PM Lora Soto CCMA * Does this person have difficulty dressing or bathing? Answer Date of Assessment Author No 12/16/2019 3:16 PM Lora Soto CCMA * Because of a physical, mental or [...] Lora Soto CCMA documented in this encounter Ordered Prescriptions Prescription Sig Dispense Quantity Refills Last Filled Start Date End Date albuterol (VENTOLIN HFA) 90 mcg/actuation Inhl HFA Aerosol InhalerIndications: Mild persistent asthma without complication INHALE 1 PUFF INTO THE LUNGS NEEDED FOR WHEEZING. 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 Call back number: [phone] * Telephone Encounter - Josh Gomez ice guard inspector - 07/03/2025 7:38 AM EDT Ventolin Future Visit: NONE Last Assessed Visit: NA Follow-Up: NIGEL Appointment protocol failed. One colleen supply sent to pharmacy. Routed to Patient Navigators. documented in this encounter Plan of Treatment Not on file documented as of this encounter Goals Goal Patient Goal Type Associated Problems Recent Progress Patient-Stated? Author Maintain a healthy diet, exercise regularly and maintain an ideal body weight General No Jayla Denton, Bryson documented as of this encounter Visit Diagnoses Diagnosis Mild persistent asthma without complication Unspecified asthma documented in this encounter Discontinued Medications Medication Sig Discontinue Reason Start Date End Da te albuterol (VENTOLIN HFA) 90 mcg/actuation Inhl HFA Aerosol InhalerIndications:Mild persistent asthma without complication INHALE 1 PUFF INTO THE LUNGS NEEDED FOR WHEEZING. 03/25/2025 07/03/2025 documented as of this encounter Care Teams Child Care Cook Relationship Specialty Start Date End Date Nathaniel Glass MD [address] [place], [place] [phone] PCP - General 11/16/09 documented as of this encounter
--- OUTSIDE RECORDS SUMMARY | 2025-07-26 14:39 | XMS_ITS | Clinical Summary ---
Author Organization Healthcare Address [address] [place] [address] Care Team Providers Care Sheet Metal Lay Out Worker Name Role Phone Pcp, No Primary Care Provider Unavailabl e Social History Tobacco Use Types Packs/Day Years Used Date Smoking Tobacco: Never Assessed Comments Unknown Sex and Gender Information Value Date Recorded Sex Assigned at Not on file Legal Sex Female 8:17 PM EDT Gender Identity Not on file Sexual Orientation Not on file Plan of Treatment Health Maintenance Due Date Last Done Comments Dental Oral Exam 1999 Dental Prophylaxis 1999 Dental X-Ray: Bitewings 1999 Dental X-Ray: Full Mouth 1999 [facility]-Depression Screening 1999 [facility]-HIV Screening 1999 [facility]-Hepatitis C Screening 1999 [facility]-Infant/Child/Adol SDOH Screenings 1999 HPV Vaccines (1 - 3-dose series) 2014 [facility]- SDOH Screenings 2017 [facility]-Adult SDOH Screenings 2017 [facility]-Pap Smear 2020 CYG-RKOAS-05 Vaccine ( season) 2025 [facility]-Influenza Vaccine (#1) 2025 [facility]-DTaP,Tdap,and Td Vaccines (8 - Td or Tdap) 03/24/2034 03/24/2024, 10/14/2018, 06/02/2011, Additional history exists [facility]-Zoster Vaccines (1 of 2) 2049 06/02/2011, 04/12/2001 [facility]-Hepatitis B Vaccines Completed 000, 1999, 1999 [facility]-HIB Vaccines Completed 07/27/2000, , 1999, Additional history exists [facility]-IPV Vaccines Completed 05/18/2004, , 1999, Additional history exists [facility]-Varicella Vaccines Completed 06/02/2011, 2000 [facility]-Hepatitis A Vaccines Aged Out No longer eligible based on patient's age to complete this topic [facility]-Pneumococcal Vaccine: Pediatrics (0 to 5 Years) and At-Risk Patients (6 to 49 Years) Aged Out No longer eligible based on patient's age to complete this topic [facility]-Rotavirus Vaccines Aged Out No lo nger eligible based on patient's age to complete this topic Care Teams Sheet Metal Lay Out Worker Relationship Specialty Start Date End Date Pcp, No [address] [place] [address] PCP - General Family Medicine 04/14/24
--- OUTSIDE RECORDS SUMMARY | 2025-07-26 14:39 | XMS_ITS | Encounter Summary ---
Author Organization [place] [address] Care Team Providers Care Hostler Helper Name Role Phone Nathaniel Glass MD Primary Care Provider [phone] Reason for Visit * Reason Onset Date Comments Medication Refill 05/27/2025 Encounter Details Date Type Department Care Team (Late st Contact Info) Description 05/27/2025 Refill [facility] [place] [phone] [place] [address] [place] [phone] Medication Refill Social History Tobacco Use Types Packs/Day Years [...] Refills Last Filled Start Date End Date EPINEPHrine (EPIPEN) 0.3 mg/0.3 mL Inj Auto-InjectorIndic ations:Anaphylaxis , subsequent encounter 0.3 mL by Other route as needed for Anaphylaxis. Use as directed for anaphylaxis. 2 Each 05/27/2025 documented in this encounter Plan of Treatment Not on file documented as of this encounter Goals Goal Patient Goal Type Associated Problems Recent Progress Patient-Stated? Author Maintain a healthy diet, exercise regularly and maintain an ideal body weight General No Jayla Denton, RAMANA documented as of this encounter Visit Diagnoses Diagnosis Anaphylaxis, subsequent encounter documented in this encounter Discontinued Medications Medication Sig Discontinue Reason Start Date End Da te EPINEPHrine (EPIPEN) 0.3 mg/0.3 mL Inj Auto-InjectorIndication s:Anaphylaxis, subsequent encounter 0.3 mL by Other route as needed for Anaphylaxis. Use as directed for anaphylaxis. Reorder 02/25/2025 05/27/2025 documented as of this encounter Care Teams Hostler Helper Relationship Specialty Start Date End Date [place]iel [place] [address] [place] [address] PCP - General 11/16/09 documented as of this encounter
--- OUTSIDE RECORDS SUMMARY | 2025-07-26 14:39 | XMS_ITS | Encounter Summary ---
Author Organization [place] [address] Care Team Providers Care Team Leader/Research Psychologist Name Role Phone Nathaniel Glass MD Primary Care Provider [phone] Reason for Visit * Reason Onset Date Comments Appointment Needed 05/25/2025 Labs Encounter Details Date Type Department Care Team (Late st Contact Info) Description 05/25/2025 Telephone SEP [facility] [place] [address] [address] Nathaniel Glass MD [place] [facility] [place] [address] Appointment Needed (Labs) Social History Tobacco Use Types Packs/Day Years [...] 12/16/2019 3:16 PM Lora Soto, GAELA * Because of a physical, mental or emotional condition, does this person have difficulty doing errands alone such as visiting a doctor's office or shopping? Answer Date of Assessment Author No 12/16/2019 3:16 PM Lora Soto, BRENDA documented as of this encounter Mental Status * Because of a physical, mental or emotional condition, does this person have serious difficulty concentrating, remembering or making decisions? Answer Entry Date Author No 12/16/2019 3:16 PM Lora Soto, BRENDA documented in this encounter Miscellaneous Notes * Telephone Encounter - Betty Trinidad MA - 05/25/2025 2:35 PM EDT Appt scheduled. * Telephone Encounter - Ladonna Covarrubias, Clerical Staff - 05/25/2025 2:15 PM EDT Select the most appropriate reason for this telephone message: Appointment Needed Appointment Requested By: Patient Provider Preference: Any Available Type of Appt Needed: Nurse Visit Detailed Reason for Appt: Labs Requested Timeframe: Tomorrow Reason Scheduling Assistance is Needed: Call Center not permitted to schedule Return Method of Communication: Phone Call Additional Information: Please contact patient to schedule, thank you, documented in this encounter Plan of Treatment Not on file documented as of this encounter Goals Goal Patient Goal Type Associated Problems Recent Progress Patient-Stated? Author Maintain a healthy diet, exercise regularly and maintain an ideal body weight General No Jayla Denton RMA documented as of this encounter Visit Diagnoses Not on filedocumented in this encounter Care Teams Team Leader/Research Psychologist Relationship Specialty Start Date End Date Nathaniel Glass MD [address] [place], [place] [phone] PCP - General 11/16/09 documented as of this encounter
--- NOTE | 2025-07-26 14:50 | ED_ITS ---
<Statement entered by Adin Alas MD - 07/27/25 08:51> I was consulted by the JOSE, and we discussed the complexity of the problems being addressed. I approved the treatment and management plan for this patient's care in the emergency department, thus performing a substantive portion of the medical decision making. Adin Alas MD Discharge Plan Disposition Patient Disposition: Home, Self-Care Prescriptions Prescriptions: New prednisone 50 mg tablet 50 mg PO DAILY Qty: 5 0RF No Action fluticasone propionate 50 mcg/actuation spray,suspension 1 spray intranasal DAILY Patient Comments: SPRAY 1 SPRAY BY NASAL ROUTE EVERY DAY epinephrine 0.3 mg/0.3 mL auto-injector 0.3 mg IM NEEDED PRN (Reason: Allergic Reaction) Patient Comments: USE DIRECTED FOR ANAPHYLAXIS Classic 28 mg iron- 800 mcg tablet 1 tab PO DAILY ferrous sulfate 325 mg (65 mg iron) tablet,delayed release (DR/EC) 325 mg PO DAILY Qty: 30 5RF albuterol sulfate 90 mcg/actuation HFA aerosol inhaler 4 inh inhalation Q4HP PRN (Reason: shortness of breath or wheezing) methocarbamol 750 mg tablet 750 mg PO Q6H PRN (Reason: muscle spasm) Qty: 20 0RF ondansetron 4 mg tablet,disintegrating 4 mg PO QID PRN (Reason: nausea and vomiting) Qty: 10 0RF Referrals Follow up/Referrals: Nathaniel Glass [Primary Care Provider, Medical] - See instructions Clinical Impressions Clinical Impression: Allergic reaction Print Language Print Language: [place]i Discharge ED Provider: Adin Alas General Adult HPI General Chief complaint: Allergic Reaction Stated complaint: Stung by Sweat Bee; Vomiting; Abdominal Pain; Time Seen by Provider: 07/26/25 14:30 Mode of Arrival: Ambulatory Source of Information: Patient Description of Symptoms (Recalled from ER Triage Doc. by RN): pt got stung by a bee yesterday. hx of hives with stings. has an epi pen but has never had to use it. pt reports stomach pain and nausea. History of Present Illness HPI narrative: Rama Iyer is a 25-year-old female without significant past medical history who presents emergency room today with complaints of a bee sting. Patient states the bee sting happened yesterday. Is on the posterior aspect of her left thigh. Does have some mild edema/welting associated with this. No other hives at this time. Patient is having some nausea and vomiting that started this morning after she woke up. Does have an EpiPen but has never had to use it with her bee stings. No other symptoms noted at this time. No other complaints at this time. Related Data Home Medications ?Medication ?Instructions ?Recorded ?Confirmed vits no.126-ferrous fum 1 tab PO DAILY 07/10/24 28 mg iron-folic acid 800 mcg tablet (Classic ) fluticasone propionate 50 1 spray intranasal DAILY 04/2807/10/24 mcg/actuation nasal spray,suspension epinephrine 0.3 mg/0.3 mL 0.3 mg IM NEEDED PRN Danish rgic 03/24/24 07/10/24 injection, auto-injector Reaction albuterol sulfate 90 mcg/actuation 4 inh inhalation Q4 HP PRN 04/26/24 07/10/24 aerosol inhaler shortness of breath or wheez ing Previous Rx's ?Medication ?Instructions ?Recorded ferrous sulfate 325 mg (65 mg 325 mg PO DAILY #30 tabs 06/16/24 iron) tablet,delayed release methocarbamol 750 mg tablet 750 mg PO Q6H PRN muscle s pasm #20 03/17/25 tabs ondansetron 4 mg disintegrating 4 mg PO QID PRN nausea and 03/17/25 tablet vomiting #10 tabs prednisone 50 mg tablet 50 mg PO DAILY #5 tabs 07/26 Allergies Allergy/AdvReac Type Severity Reaction Status Date / Time bee pollen Allergy Severe Anaphylaxis Verified 07/10/24 13:36 [facility] Disclaimer: The information contained in this section may have been updated after the patient was seen, as this information can be updated by other users. 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; negative for Fragile X, SMA and DMD Marijuana use during Surgical History History of bilateral salpingectomy S/P with bilateral salpingectomy History of Family History Other Diabetes Heart attack Hyperlipidemia Stroke Thyroid disorder Social History Smoking Status: Never smoker alcohol intake: never substance use type: denies use current occupational status: employed Travel in the last 8 weeks?: None Have you lived/traveled outside [place] in past 30 days?: No Contact w/someone who lives/traveled outside US past 30 days?: No Exposure to someone with infectious disease in past 14 days?: No Do you have a fever (greater than 100.4 F or 38 C)?: No Have you tested positive for COVID-19?: No Exposed to someone with COVID-19 in past 14 days?: No Do you have a sore throat?: No Do you have a cough?: No Do you have any weakness?: No Do you have any diarrhea?: No Are you experiencing any unusual bleeding?: No Do you have any muscle aches/pain?: No Do you have any abdominal pain?: No Are you experiencing loss of taste or smell?: No Other Medical History Have you received the Flu Vaccine for this season: No Have you received the Pneumonia Vaccine: No ROS Obtained: Yes All systems reviewed & no additional complaints except as documented Physical Exam General General appearance: alert and in no apparent distress Head Head exam: atraumatic, normocephalic and normal inspection Eye Eye exam: Present normal appearance, PERRL and EOMI ENT ENT exam: Present normal exam, normal oropharynx, mucous membranes moist, TM's normal bilaterally and normal external ear exam Neck Neck exam: Present normal inspection, full ROM and trachea midline; Absent meningismus or lymphadenopathy Chest Chest inspection: Present normal inspection and symmetric chest wall rise; Absent tenderness Respiratory Respiratory exam: Present normal lung sounds bilaterally; Absent respiratory distress Cardiovascular Cardiovascular exam: Present regular rate and normal rhythm; Absent JVD Abdominal Exam Abdominal exam: Present soft and normal bowel sounds; Absent distention, t enderness or guarding Extremities Exam Extremities exam: Present normal inspection, full ROM and normal capillary refill; Absent calf tenderness Back Exam Back exam: Present normal inspection; Absent tenderness Neurological Exam Neurological exam: Present alert and oriented X3 Psychiatric Psychiatric exam: Present normal affect and normal mood Skin Skin exam: Present warm, dry, intact, normal color and other (Small erythematous papule at the site of the bee sting on her left posterior thigh, no other hives present) Lymphatic Lymphatic Findings: no adenopathy Medical Decision Making Medical Records Screening: Per USPSTF and CDC recommendations, given the prevalence of disease in our region, it is our hospital?s policy to screen for HIV and viral Hepatitis for all patients aged 18 and over and those with ongoing risk factors. Ralph Inquiry Pt receiving controlled substance: No Vital Signs: 07/26/25 14:36 07/26/25 14:51 07/26/25 15:00 Temperature 97.9 F Temperature Source Oral Pulse Rate 56 L 82 Pulse Rate [Right] 91 H Respiratory Rate 16 Blood Pressure 140/83 119/90 Blood Pressure [Right Arm] 138/91 H Blood Pressure Mean [Right Arm] 106 02 Sat by Pulse Oximetry 98 98 99 Oxygen Delivery Method 07/26/25 15:16 07/26/25 15:30 07/26/25 15:45 Temperature Temperature Source Pulse Rate 61 72 46 L Pulse Rate [Right] Respiratory Rate Blood Pressure 104/66 L 94/62 L 99/56 L Blood Pressure [Right Arm] Blood Pressure Mean [Right Arm] 02 Sat by Pulse Oximetry 100 98 98 Oxygen Delivery Method 07/26/25 16:20 Temperature 98.2 F Temperature Source Pulse Rate 51 L Pulse Rate [Right] Respiratory Rate 20 Blood Pressure 101/63 L Blood Pressure [Right Arm] Blood Pressure Mean [Right Arm] 02 Sat by Pulse Oximetry Oxygen Delivery Method Room Air Orders (Tests/Meds): ED MEDICATIONS Discontinued Medications Generic Name Dose Route Start Last Admin Trade Name Freq PRN Reason Stop Dose Admin Diphenhydramine HCl 25 mg 07/26/25 14:38 07/26/25 14:54 Diphenhydramine 50mg/Ml Vial IV 07/26/25 14:39 25 mg ONCE ONE Administration Famotidine 40 mg 07/26/25 14:38 07/26/25 14:55 Famotidine 20mg/2ml Vial IV 07/26/25 14:39 40 mg ONCE ONE Administration Methylprednisolone Sodium Succinate 125 mg 07/26/25 14:50 07/26/25 14:54 Methylprednisolone Sod Succ 125mg Vial IV 07/26/25 14:51 125 mg ONCE ONE Administration Ondansetron HCl 4 mg 07/26/25 14:38 07/26/25 14:54 Ondansetron 4mg/2ml Vial IV 07/26/25 14:39 4 mg ONCE ONE Administration Sodium Chloride 8 ml 07/26/25 14:38 Sodium Chloride 0.9% 10ml Vial IV 08/25/25 14:37 NEEDED PRN dilute pepcid Medical Decision Narrative: In summary patient is an 25-year-old female who presents emergency department for evaluation of bee sting. Patient did have some nausea vomiting as her just prior to arrival. She was concerned for anaphylactic reaction. Patient does not have any hives. Do not think this is an anaphylactic reaction despite the nausea and vomiting. Patient is normotensive, does not have a 2 system involvement to be the anaphylaxis reaction, for this reason, IM epinephrine was deferred at this time. She is having no respiratory symptoms. Patient is hemod ynamically stable upon arrival, afebrile. Nonfocal physical exam, patient does have a small mildly erythematous single papule on the posterior aspect of her left thigh where the bee sting occurred, no other hives present. Differential diagnosis includes anaphylaxis, allergic reaction, abscess. Initial workup/interventions will be conducted with Pepcid, Solu-Medrol, Benadryl, Zofran. Upon repeat evaluation patient reports that she continues to feel improved, states that the papule on her leg actually is a bit less painful. No urticaria, no hives present. Given this patient medically stable and appropriate for discharge at this time. Return precautions were given to include worsening symptoms, hives, urticaria. I will call her in a 5-day dose of prednisone that she can start tomorrow. She states that she has an EpiPen at home and does not need another one at this time. Critical Care Critical Care Time Critical Care Time: No
[2025-07-26] MEDS: METHYLPREDNISOLONE SOD SUCC 125MG VIAL 125 MG IV (14:54)
[2025-07-26] MEDS: ONDANSETRON 4MG/2ML VIAL 4 MG IV (14:54)
[2025-07-26] MEDS: FAMOTIDINE 20MG/2ML VIAL 40 MG IV (14:55)
== END 2025-07-26 16:21 | disposition home or self-care (01) ==
PROVIDERS: Emergency Provider Emergency Medicine; PCP Pediatrics
DX: T63.441A Toxic effect of venom of bees, accidental (unintentional), initial encounter (principal); R10.9 Unspecified abdominal pain; R11.2 Nausea with vomiting, unspecified
CPT/HCPCS: 96374; 96375; 99283; 99284; J1200; J2405; J2919